=== PATIENT | female | born 1950 | race Caucasian/White ===

== ENCOUNTER 2023-11-19 11:17 | Emergency (ER) | payer MEDICARE, OTHER, SELFPAY ==
--- NOTE | ~2023-11-19 | CT_ITS ---
EXAMINATION: CT ABDOMEN AND PELVIS WITHOUT CONTRAST CLINICAL INFORMATION: Left flank pain, blood in urinalysis COMPARISON: None available. TECHNIQUE: Multidetector volumetric imaging was performed from the superior aspect of the liver through the pubic symphysis. Sagittal and coronal reformatted images were obtained on the technologist's workstation. This CT examination was performed using dose optimization techniques as appropriate, variously including the following: *Automated exposure control *Adjustment of mA and/or kV according to patient size (this includes techniques or standardized protocols for targeted exams where dose is matched to indication/reason for exam; i.e. extremities or head) *Use of iterative reconstruction technique DLP: 717 mGy-cm FINDINGS: Evaluation of solid organs, vascular structures, and bowel wall limited in the absence of intravenous contrast. LUNG BASES: Coronary artery calcifications present. Lung bases otherwise unremarkable. LIVER AND BILIARY TREE: Unremarkable. GALLBLADDER: Unremarkable. PANCREAS: Unremarkable. SPLEEN: Unremarkable. ADRENAL GLANDS: Unremarkable. KIDNEYS AND URETERS: Mild left hydroureteronephrosis to the level of the proximal ureter, where there is a 5 mm obstructing calculus (series 4, image 340). Mild asymmetric left perinephric fat stranding. No other urinary tract calculi identified. Right kidney unremarkable. GASTROINTESTINAL TRACT: Small esophageal hiatal hernia. Normal appendix. VASCULAR: Mild aortoiliac calcific atherosclerosis. Retroaortic left renal vein, a normal anatomic variant. LYMPH NODES: No lymphadenopathy. PERITONEUM: No ascites. BLADDER: Unremarkable. PELVIC VISCERA: Unremarkable. ABDOMINAL AND PELVIC WALL: Ventral lower abdominal wall skin thickening and mild fat stranding. OSSEOUS STRUCTURES: Age-indeterminate compression deformity of the T12 vertebral body with approximately 50% anterior and central height loss and 5 mm osseous retropulsion. Mild multilevel degenerative lower thoracic predominant spondylosis. Mild, grade 1 anterolisthesis of L4 and L5, likely secondary to lower lumbar facet arthropathy. CT/CT abdomen pelvis wo IV con IMPRESSION: 1. Obstructing, 5 mm left proximal ureteral calculus with mild upstream hydroureteronephrosis and likely reactive perinephric stranding. 2. Age-indeterminate compression deformity of the T12 vertebral body with mild osseous retropulsion. Correlate with point tenderness and neurologic signs/symptomatology.
[2023-11-19 11:22] VITALS: BP 204/84; PULSE 80; RESP 18; TEMP 35.9; O2SAT 96; BMI 38.5
[2023-11-19 12:21] LABS: Appearance Urine Cloudy; Color Urine Yellow; Glucose Urine UA Negative (Negative); Leukocyte Esterase Urine Negative (Negative); Nitrite Urine Negative (Negative); PH 5.5 (5.0-9.0); Specific Gravity - Urine 1.015 (1.005-1.025); UMIC TRIGGER UACC YES; Urine Blood Large (3+) (Negative); Urine Ketones Negative (Negative); Urine Protein 30 (1+) mg/dL (Neg-Trace)
[2023-11-19 12:23] LABS: Bacteria Urine 4+ (None Seen); Hyaline Casts Urine 0-2 /LPF (0-2); RBC Urine >20 /HPF (0-2); WBC Urine 0-5 /HPF (0-5)
[2023-11-19 14:08] LABS: Glucose, Whole Blood 126 mg/dL (60-115)
[2023-11-19 14:13] LABS: Basophils Percent Auto 0.3 % (0-2); Eosinophils Percent Auto 0.2 % (0-4); Hematocrit 41.3 % (37.0-47.0); Hemoglobin 13.5 g/dl (12.0-16.0); Imm Gran Abs Auto 0.04 X10*3/uL (0.00-0.03); Imm Gran Pct Auto 0.4 % (0.0-0.4); Lymphocytes Absolute Auto 0.5 X10*3/uL (1.2-4.9); Lymphocytes Percent Auto 4.8 % (20-40); MANUAL DIFF FLAG SCAN; Mean Corpuscular HGB Conc 32.7 g/dl (31.0-35.0); Mean Corpuscular Hemoglobin 28.2 pg (27.0-33.0); Mean Corpuscular Volume 86.4 fL (80.0-98.0); Mean Platelet Volume 10.1 fL (9.4-12.3); Monocytes Absolute Auto 0.4 X10*3/uL (0.1-1.2); Monocytes Percent Auto 4.1 % (2-11); Neutrophils Absolute Auto 9.7 x10*3/uL (2.0-8.3); Neutrophils Percent Auto 90.2 % (45-73); Platelet Count 243 X10*3/uL (160-400); Red Blood Count 4.78 X10*6/uL (4.20-5.50); SCAN SMEAR FLAG 1; White Blood Count 10.7 X10*3/uL (4.8-10.8)
[2023-11-19 14:29] LABS: SLIDE REVIEW VERIFIED
[2023-11-19 14:30] LABS: Alanine Aminotransferase 9 U/L (0-31); Albumin Level 4.2 g/dL (3.5-5.0); Alkaline Phosphatase 84 U/L (39-117); Anion Gap 15 (12-20); Aspartate Amino Transferase 20 U/L (5-31); Bilirubin Direct 0.3 mg/dL (0.0-0.5); Bilirubin Total 0.8 mg/dL (0.0-1.0); Blood Urea Nitrogen 14 mg/dL (9-16); Calcium 9.6 mg/dL (8.4-10.2); Carbon Dioxide 25 mmol/L (22-29); Chloride 104 mmol/L (96-108); Creatinine Clr Calc Pharmacy 51.3; Estimated Glomerular Filt Rate 55; Glucose Random 138 mg/dL (60-115); Lipase 19 U/L (8-78); Sodium 140 mmol/L (135-145); Total Protein 7.5 g/dL (6.5-8.0)
[2023-11-19 14:31] VITALS: BP 218/91; PULSE 85; RESP 18; TEMP 36.6; O2SAT 97
[2023-11-19 14:53] VITALS: BP 187/85
--- NOTE | 2023-11-19 15:03 | ED_ITS ---
HPI - General Adult General Chief complaint: General Medical Stated complaint: Abd pain, vomiting, unable to urinate Time Seen by Provider: 11/19/23 14:47 Source: patient and family Mode of arrival: ambulatory History of Present Illness HPI narrative: 73-year-old female with remote history of renal colic presents today with onset of left flank pain while watching TV this morning and experiencing nausea and vomiting several times but denies any fevers or chills and denies radiation of the flank pain. She has been unable to take her blood pressure medications today and otherwise reports corresponding dysuria. Related Data Previous Rx's Medication Instructions Recorded ketorolac 10 mg tablet 10 mg PO Q6H PRN pain 5 days #20 11/19/23 tabs ondansetron 4 mg disintegrating 4 mg PO Q8H PRN nausea and 11/19/23 tablet vomiting 4 days #10 tabs prednisone 20 mg tablet 20 mg PO DAILY #4 tabs 11/19/23 tamsulosin 0.4 mg capsule (Flomax) 0.4 mg PO BEDTIME #5 caps 11/19/23 Allergies Allergy/AdvReac Type Severity Reaction Status Date / Time No Known Allergies Allergy Verified 11/19/23 13:40 Review of Systems 2 Review of Systems: Pertinent positives and negatives as stated in HPI [facility] Past Medical History Source: nursing notes reviewed Social History Social History Alcohol intake: current Alcohol type: wine Smoked in Last 30 Days: No Use of substances other than those prescribed or required for medical reasons: No Advance Directives: Yes Advance Directives Information Provided: Yes Advance Directives on File: No Physical Exam ED Vital Signs: Vital Signs - 24 hr 11/19/23 11:22 11/19/23 14:31 11/19/23 14:53 Temperature 96.6 F L 97.8 F Pulse Rate 80 85 Respiratory Rate 18 18 Blood Pressure 204/84 H 218/91 H 187/85 H Pulse Oximetry 96 97 Oxygen Delivery Method Room Air Room Air BMI result Body Mass Index 38.5 VITAL SIGNS: Reviewed. GENERAL: Well developed, well nourished, in no acute distress. HEAD: Normocephalic/atraumatic EYES: PERRLA, EOMI EARS: Ext canals without abnormality NOSE: Nares patent bilateral OROPHARYNX: no oral lesions noted, posterior pharynx clear NECK: Supple, no adenopathy LUNGS: Normal breath sounds. No adventitious sounds or accessory muscle use. SpO2<97> CARDIOVASCULAR: Regular rate and rhythm without noted murmurs ABDOMEN: Soft, non-tender, non-distended with bowel sounds. MUSCULOSKELETAL: No tenderness, deformities, or effusions noted on gross inspection. EXTREMITIES: No cyanosis, clubbing or edema. SKIN: Inspection of the skin reveals no rashes NEUROLOGIC: Alert and oriented x 4. Strength and sensation to light touch were grossly intact x 4. Medications Administered Discontinued Medications Generic Name Dose Route Start Last Admin Trade Name Freq PRN Reason Stop Dose Admin Hydralazine HCl 5 mg 11/19/23 14:57 11/19/23 15:49 Hydralazine Hcl 20 Mg/Ml Vial IVPUSH 11/19/23 14:58 5 mg ONCE ONE Administration Protocol Sodium Chloride 1,000 mls @ 999 mls/hr 11/19/23 15:00 11/19/23 15:48 Ns IV 11/19/23 16:00 999 mls/hr .Q1H1M NICOLLE Administration Ketorolac Tromethamine 15 mg 11/19/23 14:57 11/19/23 15:50 Ketorolac Tromethamine 30 Mg/Ml Vial IVPUSH 11/19/23 14:58 15 mg ONCE ONE Administration Ondansetron HCl 4 mg 11/19/23 14:57 11/19/23 15:49 Ondansetron Hcl 4 Mg/2 Ml Vial IVPUSH 11/19/23 14:58 4 mg ONCE ONE Administration Medical Decision Making Medical Decision Making [facility] Narrative: 1455: 73-year-old female with history and clinical presentation, DDX: Ureterolithiasis, UTI, and no clinical suspicion for diverticulitis/pyelonephritis/appendicitis or obstruction. Patient receiving IV fluids/pain medications/antinausea medication. Patient also receiving medication for her high blood pressure since she was unable to tolerate p.o. medications. I reviewed all investigations and hematologic indices are negative for leukocytosis/anemia/thrombocytopenia. Chemistry indices negative for CONSTANCE or electrolyte/liver enzyme derangements. Urinalysis significant for hematuria but doubt infection. CT demonstrates 5 mm obstructing proximal ureteral stone with corresponding hydronephrosis. On re-evaluation patient is feeling better, I discussed the case with Dr. Cunha who will have his office reach out to the patient tomorrow. She is otherwise discharged home with Flomax/ketorolac/20 mg prednisone/Zofran. Differential Diagnosis Differential Diagnoses: The differential diagnosis associated with the presentation includes Please see the discussion above Admission/Observation Consideration of admission/observation: Escalation of care including admission/observation considered Please see the discussion above Consult Healthcare Provider Management of the patient was discussed with: Telecommunications Field Engineer Please see the discussion above Lab Data MDM Lab Attestation statement: I reviewed the patient's lab results. Please see the discussion above 11/19/23 14:08 11/19/23 14:08 Labs: Lab Results 11/19/23 11/19/23 11/19/23 Range/Units 12:07 13:57 14:08 WBC 10.7 (4.8-10.8) X10*3/uL RBC 4.78 (4.20-5.50) X10*6/uL Hgb 13.5 (12.0-16.0) g/dl Hct 41.3 (37.0-47.0) % MCV 86.4 (80.0-98.0) fL MCH 28.2 (27.0-33.0) pg MCHC 32.7 (31.0-35.0) g/dl RDW 14.0 (11.0-16.0) % Plt Count 243 (160-400) X10*3/uL MPV 10.1 (9.4-12.3) fL Immature Gran % (Auto) 0.4 (0.0-0.4) % Neut % (Auto) 90.2 H (45-73) % Lymph % (Auto) 4.8 L (20-40) % Evans % (Auto) 4.1 (2-11) % Eos % (Auto) 0.2 (0-4) % Baso % (Auto) 0.3 (0-2) % Lymph # (Auto) 0.5 L (1.2-4.9) X10*3/uL Evans # (Auto) 0.4 (0.1-1.2) X10*3/uL Eos # (Auto) 0.0 (0.0-0.4) X10*3/uL Baso # (Auto) 0.0 (0.0-0.2) X10*3/uL Abs Immat Gran (auto) 0.04 H (0.00-0.03) X10*3/uL Absolute Neuts (auto) 9.7 H (2.0-8.3) x10*3/uL Absolute Nucleated RBC 0.000 (0.0-0.012) X10*3/uL Nucleated RBC % (auto) 0.0 (0.0-0.2) /100WBC Smear Tech's Comments VERIFIED Sodium 140 (135-145) mmol/L Potassium 4.0 (3.3-5.1) mmol/L Chloride 104 (96-108) mmol/L Carbon Dioxide 25 (22-29) mmol/L Anion Gap 15 (12-20) BUN 14 (9-16) mg/dL Creatinine 1.00 (0.5-1.4) mg/dL Estim Creat Clear Calc 51.3 Estimated GFR 55 POC Glucose 126 H (60-115) mg/dL Random Glucose 138 H (60-115) mg/dL Calcium 9.6 (8.4-10.2) mg/dL Total Bilirubin 0.8 (0.0-1.0) mg/dL Direct Bilirubin 0.3 (0.0-0.5) mg/dL AST 20 (5-31) U/L ALT 9 (0-31) U/L Alkaline Phosphatase 84 (39-117) U/L Total Protein 7.5 (6.5-8.0) g/dL Albumin 4.2 (3.5-5.0) g/dL Lipase 19 (8-78) U/L Urine Color Yellow Urine Appearance Cloudy Urine pH 5.5 (5.0-9.0) Ur Specific Amelia 1.015 (1.005-1.025) Urine Protein 30 (1+) H (Neg-Trace) mg/dL Urine Glucose (UA) Negative (Negative) mg/dL Urine Ketones Negative (Negative) mg/dL Urine Blood Large (3+) H (Negative) Urine Nitrite Negative (Negative) Ur Leukocyte Esterase Negative (Negative) Urine RBC >20 H (0-2) /HPF Urine WBC 0-5 (0-5) /HPF Ur Squamous Epith Cells 3-5 (0-2) /HPF Urine Bacteria 4+ (None Seen) Hyaline Casts 0-2 (0-2) /LPF Radiology Impression Discussion of test interpretation with radiology: I have reviewed the radiologist's reading. Radiologist Impression: Please see the discussion above Chronic Conditions Patient?s care impacted by: Hypertension Critical Care Time Critical Care Time Critical Care Time: Yes Total Critical Care Time: 60 Attestation: I personally attest to this time spent taking care of the patient. Discharge Plan Discharge Clinical Impression: Renal colic, Ureterolithiasis, Hydronephrosis Patient Disposition: Home, Self-Care Instructions: Renal Colic (ED), Low Oxalate Diet (ED), Hydronephrosis (ED), Ureteral Stones (ED) Additional Instructions: 1. Resume all home medications as prescribed. 2. Dr. Cunha's office will call you tomorrow. 3. Please return to the ER if you have any worsening of symptoms. Prescriptions: New ketorolac 10 mg tablet 10 mg PO Q6H PRN (Reason: pain) 5 Days Qty: 20 0RF Rx Instructions: Patient received Toradol in the emergency room. prednisone 20 mg tablet 20 mg PO DAILY Qty: 4 0RF ondansetron 4 mg tablet,disintegrating 4 mg PO Q8H PRN (Reason: nausea and vomiting) 4 Days Qty: 10 0RF tamsulosin [Flomax] 0.4 mg capsule 0.4 mg PO BEDTIME Qty: 5 0RF Referrals: Candido Treviño MD [Primary Care Provider] - Luis A Cunha MD [Physician] -
[2023-11-19] MEDS: 0.9 % Sodium Chloride 1,000 ML 999 ML IV (15:48)
[2023-11-19] MEDS: ondansetron HCL 4 MG/2 ML VIAL IVPUSH (15:49)
[2023-11-19] MEDS: hydrALAZINE HCl 20 MG/ML VIAL 5 MG IVPUSH (15:49)
[2023-11-19] MEDS: Ketorolac Tromethamine 30 MG/ML VIAL 15 MG IVPUSH (15:50)
[2023-11-19 17:41] VITALS: BP 169/84; PULSE 95; RESP 16; O2SAT 95
== END 2023-11-19 17:54 | disposition home or self-care (01) ==
PROVIDERS: Emergency Provider Student in an Organized Health Care Education/Training Program; PCP Internal Medicine
DX: N13.2 Hydronephrosis with renal and ureteral calculous obstruction (principal); R11.2 Nausea with vomiting, unspecified; E11.9 Type 2 diabetes mellitus without complications; I10 Essential (primary) hypertension; Z87.442 Personal history of urinary calculi; Z79.899 Other long term (current) drug therapy
CPT/HCPCS: 36415; 74176; 80048; 80076; 81001; 82947; 83690; 85025; 96361; 96374; 96375; 99284; J0360; J1885; J2405

== ENCOUNTER 2023-11-20 12:58 | Outpatient (AMB) | payer MEDICARE, OTHER, SELFPAY ==
--- NOTE | 2023-11-20 13:12 | A.OFFVIS_ITS ---
Intake Intake Visit Reasons: ER follow up/H&P ESWL Intake Note: NEW Patient presents today to established treatment for Renal Stones, pre op: Meds- Tamsulosin Allergies to Antibiotic- Sulfa Blood Thinner- Aspirin Principal Software Architect Required: No Accompanied by: Self / Same As Patient Allergies Sulfa (Sulfonamide Antibiotics) Allergy (Mild, Verified 11/20/23 13:19) Rash Medication List - Last Reconciled 11/20/23 by Jarvis Vora MD alendronate 70 mg PO QWEEK aspirin 81 mg PO DAILY budesonide 9 mg PO QAM citalopram 20 mg PO DAILY ergocalciferol (vitamin D2) PO ezetimibe 10 mg PO DAILY ferrous sulfate 325 mg PO DAILY furosemide 20 mg PO DAILY insulin detemir U-100 (Levemir FlexPen) 70 units subcut insulin glargine (Basaglar KwikPen U-100 Insulin) 70 units subcut ketorolac 10 mg PO Q6H PRN 5 days levothyroxine 125 mcg PO DAILY losartan 100 mg PO DAILY meloxicam 15 mg PO DAILY metformin 500 mg PO BID metoprolol succinate ER 25 mg PO DAILY ondansetron 4 mg PO Q8H PRN 4 days oxycodone-acetaminophen 5-325 mg (Percocet) 1 tab PO Q6H PRN pen needle, diabetic (BD Ultra-Fine Mini Pen Needle) As directed pioglitazone 30 mg PO DAILY prednisone 20 mg PO DAILY rosuvastatin (Crestor) 40 mg PO DAILY tamsulosin (Flomax) 0.4 mg PO BEDTIME tirzepatide (Mounjaro) mg subcut HPI HPI Comments History of Present Illness Details Kassandra is a 73-year-old female she was seen in the emergency room on 11/19 23 with left flank pain. She had a CT scan done which noted a 5 mm proximal ureteral stone with mild hydronephrosis. She states that several years ago she had a kidney stone requiring a stent and treatment for the stone and the stent was removed in the office. Past medical history hypertension, CAD, type 2 DM, the patient is on aspirin 81 mg daily which she has not taken in a few days. Currently her pain is manageable she denies nausea. I reviewed CT imaging--CTAP-5 mm left proximal ureteral calculus with mild upstream hydroureteronephrosis and likely reactive perinephric stranding. Cystoscopy, Left ureteroscopy, laser lithotripsy, left ureteral stent. I have discussed to continue to hold the aspirin, and she can take extra- strength Tylenol It is okay if she uses a Toradol if she gets severe pain 7-10 I will also send percocet to use for pain 7-10 Preop testing called after reviewing the patient's medication list The patient was informed that because she is on Mounjaro, this medication needs to be on hold for 7 days prior to scheduled anesthesia procedures. [facility] Medical History (Updated 11/20/23 @ 14:32 by WILLIAM Enriquez) Herniated muscle Lower back pain Bursitis Arthritis Biceps tendonitis Osteopenia Anxiety disorder Hypertension Systolic murmur Mixed hyperlipidemia Hiatal hernia Collagenous colitis Hyperlipemia Type 2 diabetes mellitus Heart attack History of renal stone Surgical History (Updated 11/20/23 @ 14:32 by WILLIAM Enriquez) History of carpal tunnel surgery History of heart artery stent Hx of lithotripsy Family History Father No problems noted. Mother Brain cancer Social History Alcohol intake: current Alcohol type: wine Patient Tobacco Use Status: Never used Tobacco Review of Systems Const All systems reviewed & are unremarkable except as noted in HPI and below Reports no additional complaints Eyes Reports no additional complaints ENT Reports no additional complaints Card Denies dyspnea Resp Denies cough and Denies dyspnea GI Reports no additional complaints Reports no additional complaints Musc Reports no additional complaints Skin/Breast Denies rash and Denies unusual bruising Neuro Reports no additional complaints Psych Reports no additional complaints Endo Reports no additional complaints Roland/Lymph Reports no additional complaints Aller/Immun Reports no additional complaints Physical Exam Const General: cooperative, healthy appearing and no acute distress Orientation/consciousness: patient oriented x3 HEENT Head: Yes normal to inspection, Yes normocephalic and Yes atraumatic Eyes Conjunctivae: conjunctivae normal Neck Neck: Yes normal visual inspection and Yes trachea midline Chest Chest palpation & inspection: normal inspection of the chest Resp Effort & Inspection: normal respiratory effort Cardio Rate: regular rate GI Inspection: Yes normal to inspection Skin General skin exam: no rashes or lesions noted Neuro General: patient oriented x3 Extrem General: No edema Psych Appearance: grossly normal Results Reviewed Results Reviewed: Date of Service: 11/19/23 EXAMINATION: CT ABDOMEN AND PELVIS WITHOUT CONTRAST CLINICAL INFORMATION: Left flank pain, blood in urinalysis COMPARISON: None available. FINDINGS: Evaluation of solid organs, vascular structures, and bowel wall limited in the absence of intravenous contrast. LUNG BASES: Coronary artery calcifications present. Lung bases otherwise unremarkable. LIVER AND BILIARY TREE: Unremarkable. GALLBLADDER: Unremarkable. PANCREAS: Unremarkable. SPLEEN: Unremarkable. ADRENAL GLANDS: Unremarkable. KIDNEYS AND URETERS: Mild left hydroureteronephrosis to the level of the proximal ureter, where there is a 5 mm obstructing calculus (series 4, image 340). Mild asymmetric left perinephric fat stranding. No other urinary tract calculi identified. Right kidney unremarkable. GASTROINTESTINAL TRACT: Small esophageal hiatal hernia. Normal appendix. VASCULAR: Mild aortoiliac calcific atherosclerosis. Retroaortic left renal vein, a normal anatomic variant. LYMPH NODES: No lymphadenopathy. PERITONEUM: No ascites. BLADDER: Unremarkable. PELVIC VISCERA: Unremarkable. ABDOMINAL AND PELVIC WALL: Ventral lower abdominal wall skin thickening and mild fat stranding. OSSEOUS STRUCTURES: Age-indeterminate compression deformity of the T12 vertebral body with approximately 50% anterior and central height loss and 5 mm osseous retropulsion. Mild multilevel degenerative lower thoracic predominant spondylosis. Mild, grade 1 anterolisthesis of L4 and L5, likely secondary to lower lumbar facet arthropathy. IMPRESSION: 1. Obstructing, 5 mm left proximal ureteral calculus with mild upstream hydroureteronephrosis and likely reactive perinephric stranding. 2. Age-indeterminate compression deformity of the T12 vertebral body with mild osseous retropulsion. Correlate with point tenderness and neurologic signs/symptomatology. Assessment & Plan Assessment & Plan (1) Ureteral calculus, left: Code(s): N20.1 - Calculus of ureter (2) Hydronephrosis: Code(s): N13.30 - Unspecified hydronephrosis Plan Plan for Cystoscopy, Left ureteroscopy, laser lithotripsy, left ureteral stent. Risks discussed included but not limited to, possible need to repeat procedure if stone is not completely fragmented, Irritative voiding symptoms, bladder spasms, urgency, blood in urine. Medications: New oxycodone-acetaminophen 5-325 mg (Percocet) use instead of the Toradol 1 tab PO Q6H PRN 8 tabs 0RF pain (scale score 7- 10) Patient Instructions: The patient had an opportunity to ask questions regarding treatment plan. All questions were answered. Imaging, Laboratory studies and physical exam results were discussed and reviewed in detail. No major barriers to understanding were identified. The patient expressed understanding and agreement with the above treatment plan. The patient is aware they should contact our office by phone for worsening of their current condition or the appearance of new symptoms. Compliance is encouraged with any medications and followup testing that is ordered. It is a privilege to be allowed the opportunity to participate in the urologic care of your patient. If you have any questions or concerns regarding treatment for the above conditions please do not hesitate to contact me. The office telephone contact is [phone]. This note is constructed in part using voice recognition software. While every effort has been made to ensure accuracy cleaner errors may have been included. Yours sincerely, Jarvis Vora MD Coding Level of Care Code New Pt Level 4 (59942) Diagnoses Ureteral calculus, left N20.1 Hydronephrosis N13.30
== END 2023-11-20 14:06 | disposition home or self-care (01) ==
PROVIDERS: PCP Internal Medicine; Visit Provider Urology
DX: N20.1 Calculus of ureter (principal); N13.30 Unspecified hydronephrosis
CPT/HCPCS: 99204

== ENCOUNTER → 2023-11-20 12:58 | Outpatient (BNVA) | payer MEDICARE, OTHER, SELFPAY | PROVIDERS: PCP Internal Medicine; Visit Provider Urology | DX: N13.2 Hydronephrosis with renal and ureteral calculous obstruction (principal) | CPT/HCPCS: 99202 ==

== ENCOUNTER 2023-11-28 07:40 | Day surgery (SDC) | payer MEDICARE, OTHER, SELFPAY ==
--- NOTE | 2023-11-27 10:56 | HO.ANESPROP2 ---
Documented by User: Regina Mcgrath NP 11/27/23 12:49 HPI - Anesthesia Eval Consult details Narrative: 73yo F for Left Cystoscopy, Ureteroroscopy, Retro, Laser,with possible stent Follows [facility] cardiology. Stable at 02/2023 office visit, Active with gym weekly with 1 year f/u. (Hx of FL with stent ~ 2010) Anesthesia Pre-Procedure Meds Is the patient on any of the following meds?: Any other SGL-1 drugs or drugs that delay gastric emptying (Mounjaro/Terzepatide) PMFSH Active Problems Active Problems: All Active Problems (Updated 11/20/23 @ 14:32 by WILLIAM Enriquez) Ureteral calculus, left (Acute) Past Medical History Medical History (Updated 11/20/23 @ 14:32 by WILLIAM Enriquez) Herniated muscle Lower back pain Bursitis Arthritis Biceps tendonitis Osteopenia Anxiety disorder Hypertension Systolic murmur Mixed hyperlipidemia Hiatal hernia Collagenous colitis Hyperlipemia Type 2 diabetes mellitus Heart attack History of renal stone Family History Family History Father No problems noted. Mother Brain cancer Surgical History Surgical History (Updated 11/20/23 @ 14:32 by WILLIAM Enriquez) History of carpal tunnel surgery History of heart artery stent Hx of lithotripsy Social History Social History Alcohol intake: current Alcohol intake frequency: 0-2 drinks per day Alcohol type: wine Patient Tobacco Use Status: Never used Tobacco Second Hand Smoke Exposure: No Use of substances other than those prescribed or required for medical reasons: No Are you DNR?: No Advance Directives: No Advance Directives Information Provided: Yes Advance Directives on File: No Meds Allergies Allergy/AdvReac Type Severity Reaction Status Date / Time Sulfa (Sulfonamide Allergy Mild Rash Verified 11/20/23 13:19 Antibiotics) Home Medications Medication Instructions Recorded Confirmed Last Taken Type alendronate 70 mg tablet 70 mg PO QWEEK 11/20/23 11/28/23 Unknown History aspirin 81 mg tablet,delayed 81 mg PO DAILY 11/20/23 11/28/23 11/20/23 History release budesonide 9 mg tablet,delayed and 9 mg PO QAM 11/20/23 11/28/23 Unknown History extended release citalopram 20 mg tablet 20 mg PO DAILY 11/20/23 11/28/23 Unknown History ergocalciferol (vitamin D2) 1,250 1,250 unit PO DAILY 11/20/23 11/28/23 Unknown History mcg (50,000 unit) capsule (Vitamin D2) ezetimibe 10 mg tablet 10 mg PO DAILY 11/20/23 11/28/23 Unknown History ferrous sulfate 325 mg (65 mg 325 mg PO DAILY 11/20/23 11/28/23 Unknown History iron) tablet furosemide 20 mg tablet 20 mg PO DAILY 11/20/23 11/28/23 Unknown History insulin detemir U-100 100 unit/mL 70 unit subcut 11/20/23 11/20/23 Unknown History (3 mL) subcutaneous pen (Levemir FlexPen) insulin glargine 100 unit/mL (3 70 unit subcut 11/20/23 11/20/23 Unknown History mL) subcutaneous pen (Basaglar KwikPen U-100 Insulin) levothyroxine 125 mcg tablet 125 mcg PO DAILY 11/20/23 11/28/23 Unknown History losartan 100 mg tablet 100 mg PO DAILY 11/20/23 11/28/23 Unknown History meloxicam 15 mg tablet 15 mg PO DAILY 11/20/23 11/28/23 Unknown History metformin 500 mg tablet 500 mg PO BID 11/20/23 11/28/23 Unknown History metoprolol succinate 25 mg 25 mg PO DAILY 11/20/23 11/28/23 Unknown History tablet,extended release 24 hr pen needle, diabetic 31 gauge x #1,200 ea 11/20/23 11/20/23 Unknown History 316 (BD Ultra-Fine Mini Pen Needle) pioglitazone 30 mg tablet 30 mg PO DAILY 11/20/23 11/28/23 Unknown History rosuvastatin 40 mg tablet (Crestor) 40 mg PO DAILY 11/20/23 11/28/23 Unknown History tirzepatide 7.5 mg/0.5 mL 7.5 mg subcut QWEEK 11/20/23 11/28/23 11/16/23 History subcutaneous pen injector (Elisha) Exam Pertinent Lab Results Pertinent Lab Results: Laboratory Tests 11/19/23 14:08 WBC 10.7 Hgb 13.5 Hct 41.3 Plt Count 243 Sodium 140 Potassium 4.0 Chloride 104 Carbon Dioxide 25 BUN 14 Creatinine 1.00 Narrative Narrative: EKG 02/2023 SR with freq PVCs 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 LV nml in size, wall thickness and systolic function .EF 55-60%. No RWMA. Indeterminate diastolic function. 2. RV nml in size and function. PASP wnl. 3. LA mildly dilated 4. No hemodynamically significant valve disease. Assessment and Plan Assessment Anesthesia Assessment: Chart Reviewed Documented by User: Jorje Jack MD 11/28/23 10:21 HPI - Anesthesia Eval Anesthesia Pre-Procedure Meds If Yes to any meds - educate patient: Pt education - increased risk of aspiration (Last dose Mounjaro 11/16.) [facility] Past Medical History Medical History (Updated 11/20/23 @ 14:32 by WILLIAM Enriquez) Herniated muscle Lower back pain Bursitis Arthritis Biceps tendonitis Osteopenia Anxiety disorder Hypertension Systolic murmur Mixed hyperlipidemia Hiatal hernia Collagenous colitis Hyperlipemia Type 2 diabetes mellitus Heart attack History of renal stone Family History Family History Father No problems noted. Mother Brain cancer Family history of problems with anesthesia: No Surgical History Surgical History (Updated 11/20/23 @ 14:32 by WILLIAM Enriquez) History of carpal tunnel surgery History of heart artery stent Hx of lithotripsy History of Problems with Anesthesia: Yes (repetitive PONV, but not after colonoscopy) Social History Social History Alcohol intake: current Alcohol intake frequency: 0-2 drinks per day Alcohol type: wine Patient Tobacco Use Status: Never used Tobacco Second Hand Smoke Exposure: No Use of substances other than those prescribed or required for medical reasons: No Are you DNR?: No Advance Directives: No Advance Directives Information Provided: Yes Advance Directives on File: No Meds Allergies Allergy/AdvReac Type Severity Reaction Status Date / Time Sulfa (Sulfonamide Allergy Mild Rash Verified 11/20/23 13:19 Antibiotics) Home Medications Medication Instructions Recorded Confirmed Last Taken Type alendronate 70 mg tablet 70 mg PO QWEEK 11/20/23 11/28/23 Unknown History aspirin 81 mg tablet,delayed 81 mg PO DAILY 11/20/23 11/28/23 11/20/23 History release budesonide 9 mg tablet,delayed and 9 mg PO QAM 11/20/23 11/28/23 Unknown History extended release citalopram 20 mg tablet 20 mg PO DAILY 11/20/23 11/28/23 Unknown History ergocalciferol (vitamin D2) 1,250 1,250 unit PO DAILY 11/20/23 11/28/23 Unknown History mcg (50,000 unit) capsule (Vitamin D2) ezetimibe 10 mg tablet 10 mg PO DAILY 11/20/23 11/28/23 Unknown History ferrous sulfate 325 mg (65 mg 325 mg PO DAILY 11/20/23 11/28/23 Unknown History iron) tablet furosemide 20 mg tablet 20 mg PO DAILY 11/20/23 11/28/23 Unknown History insulin detemir U-100 100 unit/mL 70 unit subcut 11/20/23 11/20/23 Unknown History (3 mL) subcutaneous pen (Levemir FlexPen) insulin glargine 100 unit/mL (3 70 unit subcut 11/20/23 11/20/23 Unknown History mL) subcutaneous pen (Basaglar KwikPen U-100 Insulin) levothyroxine 125 mcg tablet 125 mcg PO DAILY 11/20/23 11/28/23 Unknown History losartan 100 mg tablet 100 mg PO DAILY 11/20/23 11/28/23 Unknown History meloxicam 15 mg tablet 15 mg PO DAILY 11/20/23 11/28/23 Unknown History metformin 500 mg tablet 500 mg PO BID 11/20/23 11/28/23 Unknown History metoprolol succinate 25 mg 25 mg PO DAILY 11/20/23 11/28/23 Unknown History tablet,extended release 24 hr pen needle, diabetic 31 gauge x #1,200 ea 11/20/23 11/20/23 Unknown History 3/16 (BD Ultra-Fine Mini Pen Needle) pioglitazone 30 mg tablet 30 mg PO DAILY 11/20/23 11/28/23 Unknown History rosuvastatin 40 mg tablet (Crestor) 40 mg PO DAILY 11/20/23 11/28/23 Unknown History tirzepatide 7.5 mg/0.5 mL 7.5 mg subcut QWEEK 11/20/23 11/28/23 11/16/23 History subcutaneous pen injector (Mounjaro) Exam Airway Mallampati Class: II TM Dist: <=3cm Neck ROM: Full Loose/Missing/Broken Teeth: No Heart: ok. see above. Lungs: ok Assessment and Plan Assessment Anesthesia Assessment: Anesthesia Plan Discussed Final Anesthetic Review Family History of Problems with Anesthesia: No History of Problems with Anesthesia: Yes (repetitive PONV, but not after colonoscopy) NPO: Yes ASA Class: III Final Preanesthetic Review: No Changes in Pt Med Stat, Meds/Allgs Chart Reviewed, Consent Obtained/Reviewed and Anes Risks/Benef Reviewed Patient Risk: High Procedure Risk: Low Anesthetic Plan Anesthetic Plan: GA and Agree w/ Assess. and Plan Disposition: Standard PACU
[2023-11-28] VITALS (7 sets, daily range): BP systolic 126–173; BP diastolic 71–90; PULSE 62–77; RESP 16–18; TEMP 36.1–36.6; O2SAT 96–98; BMI 37.5
--- NOTE | ~2023-11-28 | FL_ITS ---
EXAMINATION: XR FLUOROSCOPY WITH IMAGES CLINICAL INFORMATION: Left stone. 5 mm left proximal ureteral calculus. COMPARISON: CT abdomen and pelvis of 11/19/2023. TECHNIQUE: Fluoroscopy Supervised By: Dr. Vora. Fluoroscopy Time: 34.2 seconds. Cumulative Dose: 15.59 mGy. DAP: Gycm2. Images: 2. FINDINGS: Double-J ureteral stent present with proximal aspect in region of left kidney and distal end overlying bladder. FL/FL guidance in OR IMPRESSION: Fluoroscopy provided for intraoperative guidance. Please refer to operative report for more detailed evaluation.
[2023-11-28] MEDS: Lactated Ringers 1,000 ML 100 ML IVCONT (08:44)
[2023-11-28 08:51] LABS: Glucose, Whole Blood 155 mg/dL (60-115)
--- NOTE | 2023-11-28 09:50 | MHC.SHP ---
Pre-Procedural Eval Section A - 24 Hr Update-Section A only Date of Service: 11/28/23 The patient is an INPATIENT: No The patient has been examined within 24 hours of the surgical procedure. The History & Physical has been completed within 30 days and I have reviewed it.: Yes Section B - Complete if H&P > 30 days Chief Complaint: Calculus of ureter, left Allergies: Allergies Allergy/AdvReac Type Severity Reaction Status Date / Time Sulfa (Sulfonamide Allergy Mild Rash Verified 11/20/23 13:19 Antibiotics) Plan Diagnosis/Plan: Unchanged I have reviewed the history and physical and performed a pertinent physical examination on my patient. No changes have occurred unless specified. Plan for Cystoscopy, left ureteroscopy, laser lithotripsy, ureteral stent. Risks discussed included but not limited to, possible need to repeat procedure if stone is not completely fragmented, Irritative voiding symptoms, bladder spasms, urgency, blood in urine. Time Spent With Patient Time: Total time managing care of this patient today ____ minutes.
--- NOTE | 2023-11-28 11:08 | W.PM.OPN ---
Operative Note Operative Note Date of Service: 11/28/23 Narrative: PreOperative Diagnosis:?? Left proximal ureteral stone, left hydronephrosis Post Operative Diagnosis:?? Left hydronephrosis Procedure: - cystoscopy, left retrograde, left ureteroscopy laser lithotripsy stent insertion, 6 British by 24 cm Disposible Flexible ureteroscope utilized Surgeon:?Dr Jarvis Vora Anesthesia:? General Indications for procedure: left flank pain, CTAP on 11/19/23 with a 5 mm proximal left ureteral stone with mild hydronephrosis Findings: Left stone not visualized. Procedure: After informed consent was verified the patient was brought to the operating placed on the OR table in supine position.? General Anesthesia was administered per protocol.? The patient was placed in lithotomy position, prepped and draped in the usual sterile fashion.? Safety pause time-out and side of surgery confirmed.? Antibiotics confirmed. Ancef 2 gm IV. 2% lidocaine jelly 10 mL was passed transurethrally. A 22 British cystoscope was inserted transurethrally, The bladder was visualized.? Both ureteric orifices were in normal position. An open-ended ureteral catheter was passed into the [] ureteral orifice and a retrograde examination was performed. A filling defect was not visualized in the ureter, mild dilatation of the proximal ureter and renal pelvis. A guidewire was passed through the ureteral catheter into the kidney, and a 2nd guidewire was then passed into the kidney to use as a safety. The cystoscope was removed, leaving both guidewires in place. One guidewire was used as the safety and was attached to the draping. The semi rigid ureteroscope was passed over one of the guidewires to the level of the left UPJ a stone was not visualized. The rigid ureteroscope was removed and the Disposible flexible ureteroscope was then passed over the guide wire into the left kidney the stone was not visualized. The ureteroscope was removed. The cystoscope was passed over the safety guidewire. A? 6 British by 24 cm stent was placed into the ureter and renal pelvis under a combination of fluoroscopy and direct visualization. The bladder was emptied.? The rigid cystoscope was removed. ? 2% lidocaine jelly was passed transurethrally. The patient tolerated the procedure well and was brought to the recovery room in stable condition. Complications: None Drains: Ureteral stent as dictated above
== END 2023-11-28 13:15 | disposition home or self-care (01) ==
PROVIDERS: PCP Internal Medicine; Visit Provider Urology
PROC: (CPT 52332; principal; 2023-11-28 09:30)
DX: N13.30 Unspecified hydronephrosis (principal); Z87.442 Personal history of urinary calculi; I10 Essential (primary) hypertension; I25.10 Atherosclerotic heart disease of native coronary artery without angina pectoris; I25.2 Old myocardial infarction; Z95.5 Presence of coronary angioplasty implant and graft; E11.9 Type 2 diabetes mellitus without complications; E78.2 Mixed hyperlipidemia; K52.831 Collagenous colitis; F41.9 Anxiety disorder, unspecified; M85.80 Other specified disorders of bone density and structure, unspecified site; M54.50 Low back pain, unspecified; Z79.4 Long term (current) use of insulin; Z79.84 Long term (current) use of oral hypoglycemic drugs; Z79.85 Long-term (current) use of injectable non-insulin antidiabetic drugs; Z79.52 Long term (current) use of systemic steroids; Z79.82 Long term (current) use of aspirin; Z79.899 Other long term (current) drug therapy; Z88.2 Allergy status to sulfonamides
CPT/HCPCS: 52332; 82947; 87086; 87088; C1769; C2617; J0131; J0690; J2405; J2704; J3010; Q9967

== ENCOUNTER → 2023-11-28 07:40 | Outpatient (BNV) | payer MEDICARE, OTHER, SELFPAY | PROVIDERS: PCP Internal Medicine; Visit Provider Urology | DX: N20.1 Calculus of ureter (principal) | CPT/HCPCS: 52356; 74420 ==

== ENCOUNTER 2023-11-30 08:29 | Outpatient (REF) | payer MEDICARE, OTHER, SELFPAY ==
--- NOTE | ~2023-11-30 | XR_ITS ---
EXAMINATION: XR ABDOMEN KUB CLINICAL INDICATION: Left ureteral stent. COMPARISON: Abdomen CT from 01/2024 TECHNIQUE: AP view of the abdomen. FINDINGS: Lung bases are unremarkable. Left ureteral stent appears to be in satisfactory position with proximal loop region of mid left kidney and distal loop of stent in urinary bladder. No radiographic evidence of renal, ureteral or bladder calculi. Multilevel osteophyte formation of the degenerated spine. Again noted is a compression fracture of the T12 vertebral body. XR/XR KUB IMPRESSION: * The left ureteral stent is in satisfactory position. * There are no radiographically visible urinary tract calculi.
== END 2023-11-30 08:30 | disposition home or self-care (01) ==
LOC: HO.XRAY 08:29
PROVIDERS: PCP Internal Medicine; Visit Provider Urology
DX: N20.1 Calculus of ureter (principal)
CPT/HCPCS: 74018

== ENCOUNTER 2023-12-06 08:04 | Outpatient (AMB) | payer MEDICARE, OTHER, SELFPAY ==
--- NOTE | 2023-12-06 08:11 | A.OFFVIS_ITS ---
Intake Intake Visit Reasons: Cysto stent removal Intake Note: Patient presents today for a CYSTOSCOPY Procedure: Meds: Vesicare & Tamsulosin Allergies to Antibiotic: Sulfa Blood Thinner: Aspirin Urinalysis test clear for Cysto? YES Disposable Uro-G Cystoscope Cannula: Olu: [id number] Exp: 02/26/2025 Stage Set Designer Required: No Accompanied by: Self / Same As Patient Allergies Sulfa (Sulfonamide Antibiotics) Allergy (Mild, Verified 12/06/23 08:12) Rash Medication List - Last Reconciled 12/06/23 by Jarvis Vora MD alendronate 70 mg PO QWEEK aspirin 81 mg PO DAILY budesonide 9 mg PO QAM citalopram 20 mg PO DAILY ergocalciferol (vitamin D2) (Vitamin D2) 1,250 units PO DAILY ezetimibe 10 mg PO DAILY ferrous sulfate 325 mg PO DAILY furosemide 20 mg PO DAILY insulin detemir U-100 (Levemir FlexPen) 70 units subcut insulin glargine (Basaglar KwikPen U-100 Insulin) 70 units subcut levothyroxine 125 mcg PO DAILY losartan 100 mg PO DAILY meloxicam 15 mg PO DAILY metformin 500 mg PO BID metoprolol succinate ER 25 mg PO DAILY pen needle, diabetic (BD Ultra-Fine Mini Pen Needle) As directed pioglitazone 30 mg PO DAILY rosuvastatin (Crestor) 40 mg PO DAILY tamsulosin (Flomax) 0.4 mg PO BEDTIME tirzepatide (Mounjaro) 7.5 mg subcut QWEEK HPI HPI Comments History of Present Illness Details 12/06/23--Kassandra is s/p ureteroscopy l eft ureteroscopy, 5 mm ureteral stone was not visualized, left ureteral stent placed. FU KUB - no radio-opaque stone seen. I have discussed with the patient that she either passed the stone or it may have migrated into a calyce and was not visualized at time of ureteroscopy and that KUB may miss radiolucent stones. Plan to remove stent today. Will get fu imaging. metabolic w/u Review of chart: 11/20/23 Kassandra is a 73-year-old female she was seen in the emergency room on 11/19 23 with left flank pain. She had a CT scan done which noted a 5 mm proximal ureteral stone with mild hydronephrosis. She states that several years ago she had a kidney stone requiring a stent and treatment for the stone and the stent was removed in the office. Past medical history hypertension, CAD, type 2 DM, the patient is on aspirin 81 mg daily which she has not taken in a few days. Currently her pain is manageable she denies nausea. I reviewed CT imaging--CTAP-5 mm left proximal ureteral calculus with mild upstream hydroureteronephrosis and likely reactive perinephric stranding. 12/06/23--Plan: Cystoscopy and ureteral stent removal today 24 hr urine Diet management, pamphlet given Reevaluate for renal nephrolithiasis, CT-stone protocol [facility] Medical History Herniated muscle Lower back pain Bursitis Arthritis Biceps tendonitis Osteopenia Anxiety disorder Hypertension Systolic murmur Mixed hyperlipidemia Hiatal hernia Collagenous colitis Hyperlipemia Type 2 diabetes mellitus Heart attack History of renal stone Surgical History Hx of cystoscopy History of carpal tunnel surgery History of heart artery stent Hx of lithotripsy Family History Father No problems noted. Mother Brain cancer Social History Alcohol intake: current Alcohol intake frequency: 0-2 drinks per day Alcohol type: wine Patient Tobacco Use Status: Never used Tobacco Second Hand Smoke Exposure: No Review of Systems Const All systems reviewed & are unremarkable except as noted in HPI and below Reports no additional complaints Eyes Reports no additional complaints ENT Reports no additional complaints Card Denies dyspnea Resp Denies cough and Denies dyspnea GI Reports no additional complaints Reports no additional complaints Musc Reports no additional complaints Skin/Breast Denies rash and Denies unusual bruising Neuro Reports no additional complaints Psych Reports no additional complaints Endo Reports no additional complaints Roland/Lymph Reports no additional complaints Aller/Immun Reports no additional complaints Office Procedures Cystoscopy Consent Discussed risk and benefit or proposed procedure with the patient. Information consent for procedure given to the patient. Discussed technical aspects, risks, benefits and alternatives in full. Addressed all of the patient's questions and concerns regarding the procedure. The patient demonstrated knowledge and understanding. They wish to proceed with this procedure. Preparation The patient was prepped in the usual manner. A medical asst was present and in the room. Genitalia was prepped with betadine solution in a sterile manner. Lidocaine Jelly 2% was placed into the urethra and 16Fr flexible Olympus cystoscope was inserted into the meatus after adequate lubrication. Procedure Time out per protocol performed. Bladder Inspection Cystoscopy findings: mild edema ureteral orifice which is expected, distal end of ureteral stent visualized. The grasping forceps were used and the stent was removed without difficulty. [id number] with stent removal DISPOSABLE SCOPE URO-G FLEXIBLE SCOPE Procedure code (CPT) selection complete Office Meds lidocaine HCl 2 % mucosal jelly in applicator Performing Provider: Jarvis Vora MD [facility] Administered by: Chi North LPN on 12/06/23 08:23 Dose Route Admin Location Dispensed Lot Number Expiration Date ND Applications Development Analyst 10 mL intra-urethral 20 mL naproxen 500 mg tablet Performing Provider: Jarvis Vora MD Performing Location[facility] Administered by: Chi North LPN on 12/06/23 08:23 Dose Route Admin Location Dispensed Lot Number Expiration Date ND Applications Development Analyst 500 mg PO 1 tab ciprofloxacin HCl 500 mg tablet Performing Provider: Jarvis Vora MD Performing Location: [facility] [place] Administered by: Chi North LPN on 12/06/23 08:23 Dose Route Admin Location Dispensed Lot Number Expiration Date NDC Applications Development Analyst 500 mg PO 1 tab Results AMB Urinalysis, Automated UA Leukoctes 500 Samantha/uL Last Edit by WILLIAM Enriquez on 12/06/23 08:18 3+ Belia Menendez 12/06/23 08:18 UA Nitrite Negative Last Edit by WILLIAM Enriquez on 12/06/23 08:18 UA Urobilinogen 0.2 mg/dL Last Edit by WILLIAM Enriquez on 12/06/23 08:1 8 UA Protein 30 mg/dL Last Edit by WILLIAM Enriquez on 12/06/23 08:18 1+ Belia Menendez 12/06/23 08:18 UA pH 6.0 Last Edit by WILLIAM Enriquez on 12/06/23 08:18 UA Blood 200 Matias/uL Last Edit by Belia Menendez [facility] on 12/06/23 08:18 3+ Belia Menendez 12/06/23 08:18 UA Specific [place] 1.020 Last Edit by WILLIAM Enriquez on 12/06/23 08: 18 UA Ketone Negative Last Edit by WILLIAM Enriquez on 12/06/23 08:18 UA Bilirubin 0 mg/dL Last Edit by WILLIAM Enriquez on 12/06/23 08:18 UA Glucose 0 mg/dL Last Edit by WILLIAM Enriquez on 12/06/23 08:18 Results Reviewed Results Reviewed: Laboratory Last Values Urine pH (Auto) 6.0 12/06/23 08:16 Specific [place] (Auto) 1.020 12/06/23 08:16 Urine Protein (Auto) 30 mg/dL 12/06/23 08:16 Glucose (UA)(Auto) 0 mg/dL 12/06/23 08:16 Urine Ketones (Auto) Negative 12/06/23 08:16 Urine Blood (Auto) 200 Matias/uL 12/06/23 08:16 Urine Nitrite (Auto) Negative 12/06/23 08:16 Urine Bilirubin (Auto) 0 mg/dL 12/06/23 08:16 Urine Urobilinogen (Auto) 0.2 mg/dL 12/06/23 08:16 Leukocyte Esterase (Auto) 500 Samantha/uL 12/06/23 08:16 Date of Service: 11/30/23 EXAMINATION: XR ABDOMEN KUB CLINICAL INDICATION: Left ureteral stent. COMPARISON: Abdomen CT from 01/2024 TECHNIQUE: AP view of the abdomen. FINDINGS: Lung bases are unremarkable. Left ureteral stent appears to be in satisfactory position with proximal loop region of mid left kidney and distal loop of stent in urinary bladder. No radiographic evidence of renal, ureteral or bladder calculi. Multilevel osteophyte formation of the degenerated spine. Again noted is a compression fracture of the T12 vertebral body. * The left ureteral stent is in satisfactory position. * There are no radiographically visible urinary tract calculi. Date of Service: 11/19/23 EXAMINATION: CT ABDOMEN AND PELVIS WITHOUT CONTRAST CLINICAL INFORMATION: Left flank pain, blood in urinalysis COMPARISON: None available. TECHNIQUE: Multidetector volumetric imaging was performed from the superior aspect of the liver through the pubic symphysis. Sagittal and coronal reformatted images were obtained on the technologist's workstation. This CT examination was performed using dose optimization techniques as appropriate, variously including the following: *Automated exposure control *Adjustment of mA and/or kV according to patient size (this includes techniques or standardized protocols for targeted exams where dose is matched to indication/reason for exam; i.e. extremities or head) *Use of iterative reconstruction technique DLP: 717 mGy-cm FINDINGS: Evaluation of solid organs, vascular structures, and bowel wall limited in the absence of intravenous contrast. LUNG BASES: Coronary artery calcifications present. Lung bases otherwise unremarkable. LIVER AND BILIARY TREE: Unremarkable. GALLBLADDER: Unremarkable. PANCREAS: Unremarkable. SPLEEN: Unremarkable. ADRENAL GLANDS: Unremarkable. KIDNEYS AND URETERS: Mild left hydroureteronephrosis to the level of the proximal ureter, where there is a 5 mm obstructing calculus (series 4, image 340). Mild asymmetric left perinephric fat stranding. No other urinary tract calculi identified. Right kidney unremarkable. GASTROINTESTINAL TRACT: Small esophageal hiatal hernia. Normal appendix. VASCULAR: Mild aortoiliac calcific atherosclerosis. Retroaortic left renal vein, a normal anatomic variant. LYMPH NODES: No lymphadenopathy. PERITONEUM: No ascites. BLADDER: Unremarkable. PELVIC VISCERA: Unremarkable. ABDOMINAL AND PELVIC WALL: Ventral lower abdominal wall skin thickening and mild fat stranding. OSSEOUS STRUCTURES: Age-indeterminate compression deformity of the T12 vertebral body with approximately 50% anterior and central height loss and 5 mm osseous retropulsion. Mild multilevel degenerative lower thoracic predominant spondylosis. Mild, grade 1 anterolisthesis of L4 and L5, likely secondary to lower lumbar facet arthropathy. IMPRESSION: 1. Obstructing, 5 mm left proximal ureteral calculus with mild upstream hydroureteronephrosis and likely reactive perinephric stranding. 2. Age-indeterminate compression deformity of the T12 vertebral body with mild osseous retropulsion. Correlate with point tenderness and neurologic signs/symptomatology. Assessment & Plan Assessment & Plan (1) Ureteral calculus, left: Code(s): N20.1 - Calculus of ureter (2) Hydronephrosis: Code(s): N13.30 - Unspecified hydronephrosis Plan Cystoscopy and ureteral stent removal today 24 hr urine Diet management, pamphlet given Reevaluate for renal nephrolithiasis, CT-stone protocol Orders: Orders AMB Cystoscopy 12/06/23 N20.1 - Calculus of ureter AMB Urinalysis Automated 12/06/23 Z13.9 - Encounter for screening, unspecified CT abdomen pelvis wo IV con 12/06/23 N20.1 - Calculus of ureter Patient Instructions: The patient had an opportunity to ask questions regarding treatment plan. All questions were answered. Imaging, Laboratory studies and physical exam results were discussed and reviewed in detail. No major barriers to understanding were identified. The patient expressed understanding and agreement with the above treatment plan. The patient is aware they should contact our office by phone for worsening of their current condition or the appearance of new symptoms. Compliance is encouraged with any medications and followup testing that is ordered. It is a privilege to be allowed the opportunity to participate in the urologic care of your patient. If you have any questions or concerns regarding treatment for the above conditions please do not hesitate to contact me. The office telephone contact is [phone]. This note is constructed in part using voice recognition software. While every effort has been made to ensure accuracy field inspector errors may have been included. Yours sincerely, Jarvis Vora MD Coding Level of Care Code Est Pt Level 3 (02223) Diagnoses Ureteral calculus, left N20.1 Hydronephrosis N13.30 CPT Codes Cystoscopy - CPT: 52229-[id number] with stent removal ([id number])
== END 2023-12-06 09:06 | disposition home or self-care (01) ==
PROVIDERS: PCP Internal Medicine; Visit Provider Urology
DX: Z13.9 Encounter for screening, unspecified (principal); N20.1 Calculus of ureter; Z96.0 Presence of urogenital implants
CPT/HCPCS: 52310

== ENCOUNTER → 2023-12-06 08:04 | Outpatient (BNVA) | payer MEDICARE, OTHER, SELFPAY | PROVIDERS: PCP Internal Medicine; Visit Provider Urology | DX: N20.1 Calculus of ureter (principal); N13.30 Unspecified hydronephrosis | CPT/HCPCS: 52310; 81003 ==

== ENCOUNTER 2024-01-23 08:45 | Outpatient (REF) | payer MEDICARE, OTHER, SELFPAY ==
--- NOTE | ~2024-01-23 | CT_ITS ---
EXAMINATION: CT ABDOMEN AND PELVIS WITHOUT CONTRAST CLINICAL INFORMATION: Kidney stone COMPARISON: 11/19/2023 TECHNIQUE: Multidetector volumetric imaging was performed from the superior aspect of the liver through the pubic symphysis. Sagittal and coronal reformatted images were obtained on the technologist's workstation. This CT examination was performed using dose optimization techniques as appropriate, variously including the following: *Automated exposure control *Adjustment of mA and/or kV according to patient size (this includes techniques or standardized protocols for targeted exams where dose is matched to indication/reason for exam; i.e. extremities or head) *Use of iterative reconstruction technique DLP: 711 mGy-cm FINDINGS: LUNG BASES: Unremarkable. ABDOMINAL AND PELVIC WALL: Left fat-containing inguinal hernia. LIVER AND BILIARY TREE: Unremarkable. GALLBLADDER: Unremarkable. PANCREAS: Unremarkable. SPLEEN: Unremarkable. ADRENAL GLANDS: Unremarkable. KIDNEYS AND URETERS: No hydronephrosis or nephrolithiasis. Interval resolution of previously seen left-sided hydronephrosis. GASTROINTESTINAL TRACT: Unremarkable. Appendix is within normal limits. VASCULAR: Unremarkable. LYMPH NODES/PERITONEUM: No lymphadenopathy. FREE FLUID: None. BLADDER: Unremarkable. PELVIC VISCERA: Scattered aortic and prostatic calcifications, no aneurysmal dilation. OSSEOUS STRUCTURES: Degenerative changes of the spine. Redemonstration of age indeterminate compression deformity of the T12 vertebral body with associated vacuum phenomena of the superior and inferior disc spaces. CT/CT abdomen pelvis wo IV con IMPRESSION: * No hydronephrosis or nephrolithiasis. Interval resolution of previously seen left-sided hydronephrosis. * Redemonstration of age indeterminate compression deformity of the T12 vertebral body with associated vacuum phenomena of the superior and inferior disc spaces.
== END 2024-01-23 08:46 | disposition home or self-care (01) ==
LOC: HO.CT 08:45
PROVIDERS: PCP Internal Medicine; Visit Provider Urology
DX: N20.1 Calculus of ureter (principal)
CPT/HCPCS: 74176

== ENCOUNTER 2024-02-19 08:43 | Outpatient (AMB) | payer MEDICARE, OTHER, SELFPAY ==
--- NOTE | 2024-02-19 08:55 | A.OFFVIS_ITS ---
Intake Visit Reasons: 10w/CT/Litholink Intake Note: Patient presents today for a CT & Lithol[facility] Results: Meds: Vesicare & Tamsulosin Allergies to Antibiotic: Sulfa Blood Thinner: Aspirin Drophammer Operator Required: No Accompanied by: Self / Same As Patient Allergies Sulfa (Sulfonamide Antibiotics) Allergy (Mild, Verified 12/06/23 08:12) Rash HPI Comments Details: 02/19/2024--Kassandra is here for follow-up. I have reviewed 24 hour urine collection. Discussed 24 hour urine results: Total volume 820 mL, Calcium 97 mg; Oxalate 21 mg, Sodium 109, Citrate 223 mg. Instructed on importance of fluid intake, Low oxalate diet, low sodium diet. Diet sheet again given to the patient. Reviewed CT imaging CTAP--hydronephrosis resolved. Kidneys within normal limits no renal calculi noted. Plan discussed increase fluids, add lemon to water. Will continue to monitor, follow-up in 1 year renal ultrasound prior 30 minutes spent in review of records pertaining to this visit and including [id number]-wdvj discussion with the patient and documentation of this visit. Review of chart: 12/06/23--Kassandra is s/p ureteroscopy left ureteroscopy, 5 mm ureteral stone was not visualized, left ureteral stent placed. FU KUB - no radio-opaque stone seen. I have discussed with the patient that she either passed the stone or it may have migrated into a calyce and was not visualized at time of ureteroscopy and that KUB may miss radiolucent stones. Plan to remove stent today. Will get fu imaging. metabolic w/u 11/20/23 Kassandra is a 73-year-old female she was seen in the emergency room on 11/19 23 with left flank pain. She had a CT scan done which noted a 5 mm proximal ureteral stone with mild hydronephrosis. She states that several years ago she had a kidney stone requiring a stent and treatment for the stone and the stent was removed in the office. Past medical history hypertension, CAD, type 2 DM, the patient is on aspirin 81 mg daily which she has not taken in a few days. Currently her pain is manageable she denies nausea. I reviewed CT imaging--CTAP-5 mm left proximal ureteral calculus with mild upstream hydroureteronephrosis and likely reactive perinephric stranding. 02/19/24--Plan: Follow-up in 1 year renal ultrasound prior [facility] Medical History Herniated muscle Lower back pain Bursitis Arthritis Biceps tendonitis Osteopenia Anxiety disorder Hypertension Systolic murmur Mixed hyperlipidemia Hiatal hernia Collagenous colitis Hyperlipemia Type 2 diabetes mellitus Heart attack History of renal stone Surgical History Hx of cystoscopy History of carpal tunnel surgery History of heart artery stent Hx of lithotripsy Family History Father No problems noted. Mother Brain cancer Social History Alcohol intake: current Alcohol intake frequency: 0-2 drinks per day Alcohol type: wine Patient Tobacco Use Status: Never used Tobacco Second Hand Smoke Exposure: No Review of Systems Const All systems reviewed & are unremarkable except as noted in HPI and below Reports no additional complaints Eyes Reports no additional complaints ENT Reports no additional complaints Card Reports no additional complaints Resp Reports no additional complaints GI Reports no additional complaints Reports as per HPI Musc Reports no additional complaints Skin/Breast Reports system reviewed and no additional complaints, except as documented Neuro Reports no additional complaints Psych Reports no additional complaints Endo Reports no additional complaints Roland/Lymph Reports no additional complaints Aller/Immun Reports no additional complaints Results AMB Urinalysis, Automated UA Leukoctes 15 Samantha/uL Last Edit by WILLIAM Enriquez on 02/19/24 09:06 UA Nitrite Negative Last Edit by WILLIAM Enriquez on 02/19/24 09:06 UA Urobilinogen 0.2 mg/dL Last Edit by WILLIAM Enriquez on 02/19/24 09:0 6 UA Protein 15 mg/dL Last Edit by WILLIAM Enriquez on 02/19/24 09:06 UA pH 6.0 Last Edit by WILLIAM Enriquez on 02/19/24 09:06 UA Blood 10 Matias/uL Last Edit by WILLIAM Enriquez on 02/19/24 09:06 UA Specific Quinlan 1.030 Last Edit by WILLIAM Enriquez on 02/19/24 09: 06 UA Ketone Negative Last Edit by WILLIAM Enriquez on 02/19/24 09:06 UA Bilirubin 1 mg/dL Last Edit by WILLIAM Enriquez on 02/19/24 09:06 UA Glucose 0 mg/dL Last Edit by WILLIAM Enriquez on 02/19/24 09:06 Results Reviewed Results Reviewed: Date of Service: 01/23/24 CT ABDOMEN AND PELVIS WITHOUT CONTRAST CLINICAL INFORMATION: Kidney stone COMPARISON: 11/19/2023 TECHNIQUE: Multidetector volumetric imaging was performed from the superior aspect of the liver through the pubic symphysis. Sagittal and coronal reformatted images were obtained on the technologist's workstation. This CT examination was performed using dose optimization techniques as appropriate, variously including the following: *Automated exposure control *Adjustment of mA and/or kV according to patient size (this includes techniques or standardized protocols for targeted exams where dose is matched to indication/reason for exam; i.e. extremities or head) *Use of iterative reconstruction technique DLP: 711 mGy-cm FINDINGS: LUNG BASES: Unremarkable. ABDOMINAL AND PELVIC WALL: Left fat-containing inguinal hernia. LIVER AND BILIARY TREE: Unremarkable. GALLBLADDER: Unremarkable. PANCREAS: Unremarkable. SPLEEN: Unremarkable. ADRENAL GLANDS: Unremarkable. KIDNEYS AND URETERS: No hydronephrosis or nephrolithiasis. Interval resolution of previously seen left-sided hydronephrosis. GASTROINTESTINAL TRACT: Unremarkable. Appendix is within normal limits. VASCULAR: Unremarkable. LYMPH NODES/PERITONEUM: No lymphadenopathy. FREE FLUID: None. BLADDER: Unremarkable. PELVIC VISCERA: Scattered aortic and prostatic calcifications, no aneurysmal dilation. OSSEOUS STRUCTURES: Degenerative changes of the spine. Redemonstration of age indeterminate compression deformity of the T12 vertebral body with associated vacuum phenomena of the superior and inferior disc IMPRESSION: * No hydronephrosis or nephrolithiasis. Interval resolution of previously seen left-sided hydronephrosis. * Redemonstration of age indeterminate compression deformity of the T12 vertebral body with associated vacuum phenomena of the superior and inferior disc spaces. Date of Service: 11/30/23 EXAMINATION: XR ABDOMEN KUB CLINICAL INDICATION: Left ureteral stent. COMPARISON: Abdomen CT from 01/2024 TECHNIQUE: AP view of the abdomen. FINDINGS: Lung bases are unremarkable. Left ureteral stent appears to be in satisfactory position with proximal loop region of mid left kidney and distal loop of stent in urinary bladder. No radiographic evidence of renal, ureteral or bladder calculi. Multilevel osteophyte formation of the degenerated spine. Again noted is a compression fracture of the T12 vertebral body. * The left ureteral stent is in satisfactory position. * There are no radiographically visible urinary tract calculi. Date of Service: 11/19/23 EXAMINATION: CT ABDOMEN AND PELVIS WITHOUT CONTRAST CLINICAL INFORMATION: Left flank pain, blood in urinalysis COMPARISON: None available. TECHNIQUE: Multidetector volumetric imaging was performed from the superior aspect of the liver through the pubic symphysis. Sagittal and coronal reformatted images were obtained on the technologist's workstation. This CT examination was performed using dose optimization techniques as appropriate, variously including the following: *Automated exposure control *Adjustment of mA and/or kV according to patient size (this includes techniques or standardized protocols for targeted exams where dose is matched to indication/reason for exam; i.e. extremities or head) *Use of iterative reconstruction technique DLP: 717 mGy-cm FINDINGS: Evaluation of solid organs, vascular structures, and bowel wall limited in the absence of intravenous contrast. LUNG BASES: Coronary artery calcifications present. Lung bases otherwise unremarkable. LIVER AND BILIARY TREE: Unremarkable. GALLBLADDER: Unremarkable. PANCREAS: Unremarkable. SPLEEN: Unremarkable. ADRENAL GLANDS: Unremarkable. KIDNEYS AND URETERS: Mild left hydroureteronephrosis to the level of the proximal ureter, where there is a 5 mm obstructing calculus (series 4, image 340). Mild asymmetric left perinephric fat stranding. No other urinary tract calculi identified. Right kidney unremarkable. GASTROINTESTINAL TRACT: Small esophageal hiatal hernia. Normal appendix. VASCULAR: Mild aortoiliac calcific atherosclerosis. Retroaortic left renal vein, a normal anatomic variant. LYMPH NODES: No lymphadenopathy. PERITONEUM: No ascites. BLADDER: Unremarkable. PELVIC VISCERA: Unremarkable. ABDOMINAL AND PELVIC WALL: Ventral lower abdominal wall skin thickening and mild fat stranding. OSSEOUS STRUCTURES: Age-indeterminate compression deformity of the T12 vertebral body with approximately 50% anterior and central height loss and 5 mm osseous retropulsion. Mild multilevel degenerative lower thoracic predominant spondylosis. Mild, grade 1 anterolisthesis of L4 and L5, likely secondary to lower lumbar facet arthropathy. IMPRESSION: 1. Obstructing, 5 mm left proximal ureteral calculus with mild upstream hydroureteronephrosis and likely reactive perinephric stranding. 2. Age-indeterminate compression deformity of the T12 vertebral body with mild osseous retropulsion. Correlate with point tenderness and neurologic signs/symptomatology. Assessment & Plan Assessment & Plan (1) Ureteral calculus, left: Code(s): N20.1 - Calculus of ureter Category: Medical (2) Hydronephrosis: Code(s): N13.30 - Unspecified hydronephrosis Category: Medical (3) History of renal stone: Code(s): Z87.442 - Personal history of urinary calculi Category: Medical Plan Follow-up in 1 year renal ultrasound prior Orders: Orders AMB Urinalysis Automated Today Z13.9 - Encounter for screening, unspecified AMB Post Void Residual by ultrasound Today N39.8 - Other specified disorders of urinary system US renal BI 10 Months Z87.442 - Personal history of urinary calculi Patient Instructions: The patient had an opportunity to ask questions regarding treatment plan. The patient expressed understanding and agreement with the above treatment plan. The patient is aware they should contact our office by phone for worsening of their current condition or the appearance of new symptoms. Compliance is encouraged with any medications and followup testing that is ordered. It is a privilege to be allowed the opportunity to participate in the urologic care of your patient. If you have any questions or concerns regarding treatment for the above conditions please do not hesitate to contact me. The office telephone contact is [phone]. This note is constructed in part using voice recognition software. While every effort has been made to ensure accuracy tankman errors may have been included. Yours sincerely, Jarvis Vora MD Coding Level of Care Code Est Pt Level 4 (93257) Diagnoses Ureteral calculus, left N20.1 Hydronephrosis N13.30 History of renal stone Z87.442
== END 2024-02-19 09:23 | disposition home or self-care (01) ==
PROVIDERS: PCP Internal Medicine; Visit Provider Urology
DX: N20.1 Calculus of ureter (principal); N13.30 Unspecified hydronephrosis; Z87.442 Personal history of urinary calculi; Z13.9 Encounter for screening, unspecified
CPT/HCPCS: 99214

== ENCOUNTER → 2024-02-19 08:43 | Outpatient (BNVA) | payer MEDICARE, OTHER, SELFPAY | PROVIDERS: PCP Internal Medicine; Visit Provider Urology | DX: N20.1 Calculus of ureter (principal); N13.30 Unspecified hydronephrosis; Z87.442 Personal history of urinary calculi | CPT/HCPCS: 81003; 99212 ==

== ENCOUNTER 2024-12-23 09:48 | Outpatient (REF) | payer MEDICARE, OTHER, SELFPAY ==
--- NOTE | ~2024-12-23 | US_ITS ---
EXAMINATION: US KIDNEY BILATERAL HISTORY: Z87.442 - Personal history of urinary calculi TECHNIQUE: Real-time grayscale ultrasound imaging of the kidneys was performed and images were reviewed. COMPARISON: Correlation is made with a CT of the abdomen without contrast dated 01/23/2024. FINDINGS: Right kidney: The right kidney measures 10.1 x 3.7 x 5.2 cm. Renal parenchymal echotexture and thickness are normal. There is a 1.4 x 1.2 x 1.5 cm cyst in the interpolar region. There is no hydronephrosis or renal calculi. Left Kidney: The left kidney measures 10.0 x 4.5 x 4.7 cm. Renal parenchymal echotexture and thickness are normal. There are no masses. No calculi are seen. There is minimal prominence of the renal pelvis without hydronephrosis. US/US renal BI IMPRESSION: 1.4 x 1.2 x 1.5 cm right renal cyst. No evidence of nephrolithiasis. Electronically signed by: Joni Vergara MD 12/24/2024 08:13 AM EDT
--- OUTSIDE RECORDS SUMMARY | 2024-12-23 10:43 | XMS_ITS | Continuity of Care Document ---
Author Organization [facility] [address] [place] [address] Phone [phone] Care Team Providers Care Process Design Chemical Engineer Name Role Phone Candido Treviño M.D. Care Team Information Electronic Security Technician [phone] Problems Active Problems Provider Date Type 2 diabetes mellitus Fabien Gonzales M.D. Onset: 08/25/2022 Hyperlipidemia Fabien Gonzales M.D. Onset: 10/25/2021 Osteoporosis Fabien Gonzales M.D. Onset: 1 10/25/2021 Coronary atherosclerosis Fabien Gonzales M.D. Onset: 08/25/2022 Extraction of cataract Fabien Gonzales M.D. O nset: 06/12/2023 Social History Type Date Description Comments Sex Unknown Lives With Spouse ETOH Use Occasionally consumes alcoho l Tobacco Use Start: Unknown Patient has never smoked Smoking Status Reviewed: 03/09/23 Patient has never sm oked Allergies and adverse reactions Active Allergies Criticality Reaction Severity Comments Date Sulfamoxole Unable to assess criticality Hives 05/19/2022 Medications Active Medications SIG Qnty Indications Order ing Provider Date Fxwbifpu77.5mg/0.5ML Solution Auto-Inject 1 injection every week as directed Dx: E11.9 6ml E11.9 Fabien Gonzales M.D. 10/30/2024 BD Uf Mini Pen Needle [id number] Use 1 Pen To Skin Once Daily 100units E11.9 Fabien Gonzales M.D. 11/08/2023 Basaglar Hxhrzpm003Wyxo/ML Solution Pen-Inject Inject 35 Units Every Morning 60ml E11.9 Fabien Gonzales M.D. 10/24/2023 Aspirin Adult Low Czud02sn Tablets DR 1 by mouth every day Fabien Gonzales M.D. 05/19/2022 Budesonide ER9mg Tablets ER 24HR Take 1 Tablet By Mouth Every Morning Candido Treviño M.D. Losartan Tfpswveef033vk Tablets Take 1 Tablet By Mouth Every Day Candido Treviño M.D. Metoprolol Succinate ER25mg Tablets ER 24HR Take 1 Tablet By Mouth Every Day Candido Treviño M.D. Ferrous Izydfme723(65Fe) mg Tablets Take 1 Tablet By Mouth Daily To Be Taken With Vitamin C/Ascorbic Acid Daily. Candido Treviño M.D. Levothyroxine Yddfqg395uum Tablets Take 1 Tablet By Mouth Every Day 6 days per week Gillian Pendleton MD Fluticasone Whdygiiimj38eos/Act Suspension 1 [place] Into Each Nostril Twice A Day as Needed For Nasal & Sinus Congestion Candido Treviño M.D. Loperamide HCL2mg Capsules Take 1 Capsule By Mouth Twice A Day as Needed For Loose Stools. Max 8 Caps/Day Candido Treviño M.D. Citalopram Gcjbjwqyquce53qt Tablets Take 1 Tablet By Mouth Every Day Candido Treviño M.D. Rosuvastatin Vlsoyrd76oy Tablets Take 1 Tablet By Mouth Everyday AT Bedtime Candido Treviño M.D. Ujejqdubz37se Tablets Take 1 Tablet By Mouth Every Day Candido Treviño M.D. Alendronate Caavym06ez Tablets Take 1 Tablet By Mouth Once A Week Candido Treviño M.D. Eqqgxjvdt91wa Tablets Take 1 Tablet By Mouth Once Daily With Food as Needed Mahin Flores DO History Medications Mounjaro7.5mg/0.5ML Solution Pen-Inject 1 injection every week as directed Dx: E11.9 E11.9 Fabien Gonzales M.D. 01/24/2024 - 01/24/2024 Mmrmgffl95za/0.5ML Solution Pen-Inject 1 injection every week as directed Dx: E11.9 6ml E11.9 Fabien Gonzales M.D. 01/24/2024 - 10/30/2024 Sxnurkes9ju/0.5ML Solution Pen-Inject 1 injection every week as directed Dx: E11.9 2ml E11.9 Fabien Gonzales M.D. 01/01/2024 - 01/24/2024 Vital Signs Date Vital Result Comment 12/09/2024 10:21am BP Systolic 130 mmHg BP Diastolic 84 mmHg Heart Rate 84 /min Height 60 inches 5'0 Weight 184.38 lb BMI (Body Mass Index) 36.0 kg/m2 Results Test Acquired Date Facility Test Result H/L [place] Laboratory test finding 12/09/2024 Inhouse Hemoglobin A1c 5.6% Glucose Fingerstick 77 Laboratory test finding 08/26/2024 Inhouse Hemoglobin A1c 5.4% Glucose Fingerstick 69 Laboratory test finding 05/15/2024 Inhouse Hemoglobin A1c 5.1% Glucose Fingerstick 53 Laboratory test finding 01/24/2024 Inhouse Hemoglobin A1c 5.8% Glucose Fingerstick 152 Laboratory test finding 09/20/2023 Inhouse Hemoglobin A1c 7.2% Glucose Fingerstick 119 Laboratory test finding 06/12/2023 Inhouse Hemoglobin A1c 7.4% Glucose Fingerstick 147 Laboratory test finding 03/09/2023 Inhouse Hemoglobin A1c 8.5% Glucose Fingerstick 176 Laboratory test finding 12/07/2022 Inhouse Hemoglobin A1c 9.0% Glucose Fingerstick 144 Laboratory test finding 08/25/2022 Inhouse Glucose Fingerstick 110 Hemoglobin A1c 7.3% Laboratory test finding 05/19/2022 Inhouse Glucose Fingerstick 127 Hemoglobin A1c 7.8 Laboratory test finding 05/02/2022 [facility] TSH 2.23 uIU/mL (0.4-4.2) Medical Devices Description No Information Available Encounters Type Date Location Provider Dx Diagnosis Office Visit 08/26/2024 10:15a Main Office Fabien Gonzales M.D. E11.9 Type 2 diabetes mellitus without complications I25.10 Athscl heart disease of [place] coronary artery w/o ang pctrs E78.5 Hyperlipidemia, unsp ecified E03.9 Hypothyroidism, unsp ecified Assessments Date Code Description Provider 12/09/2024 E11.9 Type 2 diabetes mellitus without complications Fabien Gonzales M.D. 12/09/2024 I25.10 Coronary atherosclerosis Genesis Gonzales M.D. 08/26/2024 E11.9 Type 2 diabetes mellitus without complications Fabien Gonzales M.D. 08/26/2024 I25.10 Coronary atherosclerosis Genesis Gonzales M.D. 08/26/2024 E78.5 Hyperlipidemia Fabien sanchez M.D. 08/26/2024 E03.9 Hypothyroidism Fabien sanchez M.D. Plan of Treatment Future Appointment(s):* 04/30/2025 10:30 am - Fabien Gonzales M.D. at Main Office 12/09/2024 - Fabien Gonzales M.D.* E11.9 Type 2 diabetes mellitus without complications * I25.10 Coronary atherosclerosis Functional Status Description No Information Available Mental Status Description No Information Available Referrals Description No Information Available
--- OUTSIDE RECORDS SUMMARY | 2024-12-23 10:43 | XMS_ITS | Patient Health Record ---
Author Organization [facility] Address [address] [place] [address] [address] [place] [address] Care Team Providers Care Physician General Internal Medicine Name Role Phone ALTA JIMENEZD Primary Care Provider Jasmin Nathan Unavailable [phone] Allergies Allergen (clinical drug ingredient) Drug/Non Drug Allergy documented on EMR Reaction Allergy Type Onset Date Status Substance with sulfonamide structure and antibacterial mechanism of action (substance) SULFA (uncoded) Unknown Allergy Active Reason For Referral No Information Medications Medication SIG (Take, Route, Frequency, Duration) Notes Start Date End Date Status Citalopram Hydrobromide 20 MG 1 tablet Orally Once a day Active Crestor 40MG 1 ORAL daily for [facility] 06/29/2012 Active Pioglitazone HCl 30 MG 1 tablet Orally O nce a day Active Uceris 9 MG 1 tablet in the morn ing Orally Once a day Active Levoxyl 150MCG 1 ORAL daily for [facility] 07/04/2013 Active Zetia 10MG 1 ORAL daily for [facility] 07/04/2013 Active Aspirin EC 81MG 1 ORAL daily for [facility] 06/29/2012 Active Levemir 100 UNIT/ML Subcutaneous 56 unit s in AM Active Lisinopril 2.5 MG 1 tablet Orally Once a day Active metFORMIN HCl 500 MG 1 tablet with meals Orally Twice a day Active Problems Problem Type SNOMED Code ICD Code Onset Dates Problem Status W/U Status Risk Notes Problem Postmenopausal atrophic vaginitis (61722720) Postmenopausal atrophic vaginitis (N95.2) Active confirmed Problem Hypothyroidism (34016294) Unspecified hypothyroidism (244.9) Active confirmed Major Problem Type II diabetes mellitus without complication (642564527) Diabetes mellitus without mention of complication, type II or unspecified type, not stated as uncontrolled (250.00) Active confirmed Major Problem Hyperlipidemia (16156498) Other and unspecified hyperlipidemia (272.4) Active confirmed Major Problem Depressive disorder (39925492) Depressive disorder, not elsewhere classified (311) Active confirmed Major Problem Benign essential hypertension (1921672) Essential hypertension, benign (401.1) Active confirmed Major Problem Menopausal symptom (93439011) Symptomatic menopausal or female climacteric states (627.2) Active confirmed Major Problem Postmenopausal atrophic vaginitis (76886963) Postmenopausal atrophic vaginitis (627.3) Active confirmed Diag Problem Disorder of bone and articular cartilage (disorder) (595877708) Disorder of bone and cartilage, unspecified (733.90) Active confirmed Diag Problem Gynecological examination normal (966363564261169) Routine gynecological examination (V72.31) Active confirmed Major Problem Screening for malignant neoplasm of colon (071712442) Special screening for malignant neoplasms, colon (V76.51) Active confirmed Major Plan Of Treatment Pending Test Test Name Order Date MAMMOGRAM, SCREENING 07/28/2015 THIN PREP,HPV,SOBIA IF HPV+ (>29YR)(SCRN) 08/30/2017 MM Digital Mammo Screening 08/09/2016 Insurance Providers Payer Name Payer Address Payer Phone Subscriber Number Group Number Insured Name Patient Relationship to Insured Coverage Start Date Coverage End Date MEDICARE [address] [place], [place] [id number] [place] GAN Self - patient is the insured [facility] INDEMNITY PLAN [address] [place], [place] [id number] CANDE GAN Spouse - patient is the spouse of the insured Medical (General) History Medical History History ICD Code Postmenopausal atrophic vaginitis N95.2 Disorder of bone, unspecified M89.9 Major depressive disorder, single episod e, unspecified F32.9 Type 2 diabetes mellitus without complic ations E11.9 Other hyperlipidemia E78.4 Essential (primary) hypertension I10 Hypothyroidism, unspecified E03.9 Menopausal and female climacteric states N95.1 Surgical History Surgery Date(Month/Year) Bilateral Tubal Ligation Colonoscopy Endometrial Ablation D & C Polypectomy Hospitalization History Reason Date(Month/Year) 2 Vaginal Deliveries See Surgical Hx
--- OUTSIDE RECORDS SUMMARY | 2024-12-23 10:43 | XMS_ITS | Clinical Summary ---
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 Name Role Phone Unavailable Primary Care Provider Unavailabl e Social History Tobacco Use Types Packs/Day Years Used Date Smoking Tobacco: Never Assessed Comments Unknown Sex and Gender Information Value Date Recorded Sex Assigned at Not on file Legal Sex Female 3:19 PM EST Gender Identity Not on file Sexual Orientation Not on file Plan of Treatment Upcoming Encounters Date Type Department Care Team (Late st Contact Info) Description 01/13/2025 9:30 AM EDT [facility]ointment [facility] [address] [id number] Health Maintenance Due Date Last Done Comments DTaP,Tdap,and Td Vaccines (1 - Tdap) 1971 Pneumococcal Vaccine: 50+ Years (1 of 1 - PCV) 2002 Zoster Vaccines (1 of 2) 2002 Colorectal Cancer Screening: Colonoscopy 09/14/2022 Depression Screening 09/14/2022 Falls Risk Assessment 09/14/2022 Hepatitis C Screening 09/14/2022 Medicare Annual Wellness Visit 09/14/2022 Social Influencers of Health Screening 09/14/2022 COVID-19 Vaccine ( - season) 2024 Influenza Vaccine (#1) 2024 Breast Cancer Screening 01/08/2026 01/09/20 24, 01/02/2023, 12/30/2021, Additional history exists RSV Immunization Patients 60+ Years Old (1 - 1-dose 75+ series) 2027 Osteoporosis Screening (Bone Density Screening) 02/25/2031 02/25/2021, 09/21/2018 HIB Vaccines Aged Out No longer eligi ble based on patient's age to complete this topic HPV Vaccines Aged Out No longer eligi ble based on patient's age to complete this topic Hepatitis A Vaccines Aged Out No long er eligible based on patient's age to complete this topic Hepatitis B Vaccines Aged Out No long er eligible based on patient's age to complete this topic IPV Vaccines Aged Out No longer eligi ble based on patient's age to complete this topic MMR Vaccines Aged Out No longer eligi ble based on patient's age to complete this topic Meningococcal ACWY Vaccine Aged Out N o longer eligible based on patient's age to complete this topic Meningococcal B Vacine Aged Out No lo nger eligible based on patient's age to complete this topic RSV Immunization Patients Under 20 months Aged Out No longer eligible based on patient's age to complete this topic Varicella Vaccines Aged Out No longer eligible based on patient's age to complete this topic Procedures Procedure Name Priority Date/Time Associated Diagnosis Comments [facility] SCREEN[facility] Routine 01/09/2024 1:01 PM EDT Encounter for screening mammogram for malignant neoplasm of breast [facility] DEXA AXIAL SKELETON Routine 02/25/2021 10:30 AM EDT Encounter for screening for osteoporosis from Last 3 Months or Most Recently Relevant to Health Maintenance Results * [facility] (01/09/2024 1:01 PM EDT) Anatomical Region Laterality Modality Mammography 01/09/2024 10:3 2 AM EDT Narrative 01/09/2024 1:01 PM EDT [facility] Diagnostic Imaging Department [address] [place] [address] Patient: ??KASSANDRA MITCHELL ?/Age/Sex: 1950 - 73 - F Unit#: ??[id number] ? Location/Status: ??SPDIMAM/REG CLI ? Mnemonic/Ordering Site: ??DIGSC/SPMAM Ordering Physician: ??JOSELUIS TREVIÑO MD [facility] Screening Digital - 01/09/24 - 1048 Report Status:Signed EXAM: [facility] Screening Digital EXAM DATE AND TIME: 01/09/2024 10:49 AM HISTORY: ??Annual screening COMPARISON: ??Multiple exams dating back to 2016 TECHNIQUE: Bilateral digital breast tomosynthesis was performed in the CC and MLO projections. Computer aided detection with [employer] 3D 3.1 was employed. TISSUE DENSITY: b. There are scattered areas of fibroglandular density. FINDINGS: No suspicious masses, grouped microcalcifications, or areas of architectural distortion are seen. The skin and vascularity are unremarkable. IMPRESSION: Stable mammographic appearance of the breasts. ??No evidence of malignancy is seen. A negative mammogram in the presence of a clinically suspicious palpable abnormality does not preclude the possibility of malignancy or alter the indications for biopsy. BI-RADS: ??Category 1: Negative RECOMMENDATION(S): 1: Routine screening mammogram BILATERAL in 1 year. 3341F, 7025F Dictating Physician: ??JAVON HANKINS MD Electronically Signed by: ??JAVON HANKINS MD Dic Date/Time: ??01/09/24 1252 Sign date/Time: ??01/09/24 1301 Procedure Note Javon Hankins MD - 06/03/2024 [facility] Diagnostic Imaging Department [address] [place] [address] Patient: KASSANDRA MITCHELL /Age/Sex: 1950 73 - F Unit#: [id number] Location/Status: SPDIMAM/REG CLI Mnemonic/Ordering Site: [facility] Ordering Physician: JOSELUIS TREVIÑO MD [facility] Screening Digital - 01/09/24 - 1048 Report Status:Signed EXAM: [facility] Screening Digital EXAM DATE AND TIME: 01/09/2024 10:49 AM HISTORY: Annual screening COMPARISON: Multiple exams dating back to 2016 TECHNIQUE: Bilateral digital breast tomosynthesis was performed in the CCand MLO projections. Computer aided detection with [employer] 3D 3.1was employed. TISSUE DENSITY: b. There are scattered areas of fibroglandular density. FINDINGS: No suspicious masses, grouped microcalcifications, or areas ofarchitectural distortion are seen. The skin and vascularity are unremarkable. IMPRESSION: Stable mammographic appearance of the breasts. No evidence of malignancyis seen. A negative mammogram in the presence of a clinically suspicious palpable abnormality does not preclude the possibility of malignancy or alter the indications for biopsy. BI-RADS: Category 1: Negative RECOMMENDATION(S): 1: Routine screening mammogram BILATERAL in 1 year. 3341F, 7025F Dictating Physician: JAVON HANKINS MD Electronically Signed by: JAVON HANKINS MD Dic Date/Time: 01/09/24 1252 Sign date/Time: 01/09/24 1301 Joseluis Treviño MD IMG BI PROCEDURES Final Result * [facility] (02/25/2021 10:30 AM EDT) Anatomical Region Laterality Modality Mammography 02/25/2021 9:44 AM EDT Narrative 02/25/2021 10:30 AM EDT [facility] Diagnostic Imaging Department [address] [place] [id number] Patient: ??ELVIAKASSANDRA ?/Age/Sex: 1950 - F Unit#: ??[id number] ? Location/Status: ??SPDIMAM/[facility] CLI ? Mnemonic/Ordering Site: ??MAMDEXAAX/SPMAM Ordering Physician: ??JOSELUIS TREVIÑO MD [facility] Dexa Axial Skeleton - 02/25/21 - 1006 HISTORY: ??The patient is a 70-year-old postmenopausal female with clinical concern for metabolic bone disease. FINDINGS: ??Dual energy x-ray absorptiometry of the lumbar spine and femurs is performed. The mean bone mineral density at L1-L4 is 0.921 gm/cm2 which is 78% of that of young normals and 84% of that of age matched controls. This yields a T-score of -2.2 and a Z-score of -1.5 which is diagnostic of osteopenia. The mean bone mineral density of the femurs bilaterally is 0.834 gm/cm2 which is 83% of that of young normals and 91% of that of age matched controls. ??This yields a T-score of -1.4 and a Z-score of -0.7 which is diagnostic of osteopenia.. ??The T-score of the right femoral neck is -2.2 and that of the left femoral neck is -2.4 which is diagnostic of osteopenia. IMPRESSION: 1. Osteopenia. ??There has been an increase of 7.1% in bone mineral density in the lumbar spine since the prior examination of 09/21/2018. ??There has been a decrease of 5.0% in bone mineral density in the right femur and a decrease of 1.0% in bone mineral density in the left femur. 2. FRAX analysis yields a 10-year probability of major osteoporotic fracture of 18.0% and a 10-year probability of hip fracture of 3.5%. Code 89769 Dictating Physician: ??ALEX BURGER MD Electronically Signed by: ??ALEX BURGER MD Dic Date/Time: ??02/25/21 1028 Sign date/Time: ??02/25/21 1030 Procedure Note Alex Burger MD - 10/04/2022 [facility] Diagnostic Imaging Department [address] [place] [address] Patient: KASSANDRA MITCHELL /Age/Sex: 1950 - 70 - F Unit#: [id number] Location/Status: [facility] Ordering Physician: JOSELUIS TREVIÑO MD [facility] Axial Skeleton - 02/25/21 - 1007 HISTORY: The patient is a 70-year-old postmenopausal female withclinical concern for metabolic bone disease. FINDINGS: Dual energy x-ray absorptiometry of the lumbar spine and femursis performed. The mean bone mineral density at L1-L4 is 0.921 gm/cm2 which is78% of that of young normals and 84% of that of age matched controls. Thisyields a T-score of -2.2 and a Z-score of -1.5 which is diagnostic of osteopenia. The mean bone mineral density of the femurs bilaterally is 0.834 gm/gg6agece is 83% of that of young normals and 91% of that of age matched controls.This yields a T-score of -1.4 and a Z-score of -0.7 which is diagnostic of osteopenia.. The T-score of the right femoral neck is -2.2 and that ofthe left femoral neck is -2.4 which is diagnostic of osteopenia. IMPRESSION: 1. Osteopenia. There has been an increase of 7.1% in bone mineral densityin the lumbar spine since the prior examination of 09/21/2018. There has sudheer decrease of 5.0% in bone mineral density in the right femur and a decreaseof 1.0% in bone mineral density in the left femur. 2. FRAX analysis yields a 10-year probability of major osteoporoticfracture of 18.0% and a 10-year probability of hip fracture of 3.5%. Code 97707 Dictating Physician: ALEX BURGER MD Electronically Signed by: ALEX BURGER MD Dic Date/Time: 02/25/21 1028 Sign date/Time: 02/25/21 1030 Joseluis Treviño MD IM BI PROCEDURES Final Result from Last 3 Months or Most Recently Relevant to Health Maintenance Insurance MEDICARE
== END 2024-12-23 09:49 | disposition home or self-care (01) ==
LOC: HO.HMGCX 09:48
PROVIDERS: PCP Internal Medicine; Visit Provider Urology
DX: Z87.442 Personal history of urinary calculi (principal)
CPT/HCPCS: 76775

== ENCOUNTER → 2024-12-23 09:50 | Outpatient (BNV) | payer MEDICARE, OTHER, SELFPAY | PROVIDERS: PCP Internal Medicine; Visit Provider Radiology Diagnostic Radiology | DX: N28.1 Cyst of kidney, acquired (principal) | CPT/HCPCS: 76775 ==

== ENCOUNTER 2025-02-27 16:04 | Outpatient (AMB) | payer MEDICARE, OTHER, SELFPAY ==
--- NOTE | 2025-02-27 13:43 | MHC.OFFVIS ---
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: No Accompanied by: Self / Same As Patient Allergies Sulfa (Sulfonamide Antibiotics) Allergy (Mild, Verified 02/27/25 16:06) Rash Medication List - Last Reconciled 02/27/25 by Jarvis Vora MD aspirin 81 mg PO DAILY budesonide DR-ER 9 mg PO QAM citalopram 20 mg PO DAILY ergocalciferol (vitamin D2) (Vitamin D2) 1,250 units PO DAILY ezetimibe 10 mg PO DAILY ferrous sulfate 325 mg PO DAILY furosemide 20 mg PO DAILY insulin detemir U-100 (Levemir FlexPen) 70 units subcut insulin glargine (Basaglar KwikPen U-100 Insulin) 70 units subcut levothyroxine 125 mcg PO DAILY losartan 100 mg PO DAILY meloxicam 15 mg PO DAILY metoprolol succinate ER 25 mg PO DAILY pen needle, diabetic (BD Ultra-Fine Mini Pen Needle) As directed pioglitazone 30 mg PO DAILY rosuvastatin (Crestor) 40 mg PO DAILY tamsulosin (Flomax) 0.4 mg PO BEDTIME tirzepatide (Mounjaro) 7.5 mg subcut QWEEK HPI Comments Details: 02/27/25--Kassandra presents for telehealth follow-up. I have reviewed recent ultrasound. No recurrent kidney stones. Simple renal cyst. The patient has been asymptomatic. She states she has a lot of water keep hydrated. We will continue to monitor. Follow-up next year I will check renal ultrasound at that time. She is instructed to call our office for any changes in symptoms prn. Results: Renal ultrasound-12/23/2024--1.4 x 1.2 x 1.5 cm right renal cyst. No evidence of nephrolithiasis. 02/19/2024--Kassandra is here for follow-up. I have reviewed 24 hour urine collection. Discussed 24 hour urine results: Total volume 820 mL, Calcium 97 mg; Oxalate 21 mg, Sodium 109, Citrate 223 mg. Instructed on importance of fluid intake, Low oxalate diet, low sodium diet. Diet sheet again given to the patient. Reviewed CT imaging CTAP--hydronephrosis resolved. Kidneys within normal limits no renal calculi noted. Plan discussed increase fluids, add lemon to water. Will continue to monitor, follow-up in 1 year renal ultrasound prior 30 minutes spent in review of records pertaining to this visit and including [id number] discussion with the patient and documentation of this visit. 12/06/23--Kassandra is s/p ureteroscopy left ureteroscopy, 5 mm ureteral stone was not visualized, left ureteral stent placed. FU KUB - no radio-opaque stone seen. I have discussed with the patient that she either passed the stone or it may have migrated into a calyce and was not visualized at time of ureteroscopy and that KUB may miss radiolucent stones. Plan to remove stent today. Will get fu imaging. metabolic w/u 11/20/23 Kassandra is a 73-year-old female she was seen in the emergency room on 11/19 23 with left flank pain. She had a CT scan done which noted a 5 mm proximal ureteral stone with mild hydronephrosis. She states that several years ago she had a kidney stone requiring a stent and treatment for the stone and the stent was removed in the office. Past medical history hypertension, CAD, type 2 DM, the patient is on aspirin 81 mg daily which she has not taken in a few days. Currently her pain is manageable she denies nausea. I reviewed CT imaging--CTAP-5 mm left proximal ureteral calculus with mild upstream hydroureteronephrosis and likely reactive perinephric stranding. [facility] Medical History Herniated muscle Lower back pain Bursitis Arthritis Biceps tendonitis Osteopenia Anxiety disorder Hypertension Systolic murmur Mixed hyperlipidemia Hiatal hernia Collagenous colitis Hyperlipemia Type 2 diabetes mellitus Heart attack History of renal stone Surgical History Hx of cystoscopy History of carpal tunnel surgery History of heart artery stent Hx of lithotripsy Family History Father No problems noted. Mother Brain cancer Social History Alcohol intake: current Alcohol intake frequency: 0-2 drinks per day Alcohol type: wine Patient Tobacco Use Status: Never used Tobacco Second Hand Smoke Exposure: No Review of Systems Const All systems reviewed & are unremarkable except as noted in HPI and below Reports no additional complaints Eyes Reports no additional complaints ENT Reports no additional complaints Card Reports no additional complaints Resp Reports no additional complaints GI Reports no additional complaints Reports as per HPI Musc Reports no additional complaints Skin/Breast Reports system reviewed and no additional complaints, except as documented Neuro Reports no additional complaints Psych Reports no additional complaints Endo Reports no additional complaints Roland/Lymph Reports no additional complaints Aller/Immun Reports no additional complaints Telehealth Telehealth Telehealth Platform: [employer] Location of provider rendering services: practice address Location of patient: address on file Patient Identification confirmed using: Name, : Yes Telehealth method: voice only Patient verbally consented to treatment: Yes Patient verbally consented to billing insurance company: Yes Patient informed of any privacy concerns related to visit: Yes Minutes spent on Phone/Video with Pt.: 12 Results Reviewed Results Reviewed: Date of Service: 12/23/24 EXAMINATION: US KIDNEY BILATERAL HISTORY: Z87.442 - Personal history of urinary calculi TECHNIQUE: Real-time grayscale ultrasound imaging of the kidneys was performed and images were reviewed. COMPARISON: Correlation is made with a CT of the abdomen without contrast dated 01/23/2024. FINDINGS: Right kidney: The right kidney measures 10.1 x 3.7 x 5.2 cm. Renal parenchymal echotexture and thickness are normal. There is a 1.4 x 1.2 x 1.5 cm cyst in the interpolar region. There is no hydronephrosis or renal calculi. Left Kidney: The left kidney measures 10.0 x 4.5 x 4.7 cm. Renal parenchymal echotexture and thickness are normal. There are no masses. No calculi are seen. There is minimal prominence of the renal pelvis without hydronephrosis. IMPRESSION: 1.4 x 1.2 x 1.5 cm right renal cyst. No evidence of nephrolithiasis. Date of Service: 01/23/24 CT ABDOMEN AND PELVIS WITHOUT CONTRAST CLINICAL INFORMATION: Kidney stone COMPARISON: 11/19/2023 TECHNIQUE: Multidetector volumetric imaging was performed from the superior aspect of the liver through the pubic symphysis. Sagittal and coronal reformatted images were obtained on the technologist's workstation. This CT examination was performed using dose optimization techniques as appropriate, variously including the following: *Automated exposure control *Adjustment of mA and/or kV according to patient size (this includes techniques or standardized protocols for targeted exams where dose is matched to indication/reason for exam; i.e. extremities or head) *Use of iterative reconstruction technique DLP: 711 mGy-cm FINDINGS: LUNG BASES: Unremarkable. ABDOMINAL AND PELVIC WALL: Left fat-containing inguinal hernia. LIVER AND BILIARY TREE: Unremarkable. GALLBLADDER: Unremarkable. PANCREAS: Unremarkable. SPLEEN: Unremarkable. ADRENAL GLANDS: Unremarkable. KIDNEYS AND URETERS: No hydronephrosis or nephrolithiasis. Interval resolution of previously seen left-sided hydronephrosis. GASTROINTESTINAL TRACT: Unremarkable. Appendix is within normal limits. VASCULAR: Unremarkable. LYMPH NODES/PERITONEUM: No lymphadenopathy. FREE FLUID: None. BLADDER: Unremarkable. PELVIC VISCERA: Scattered aortic and prostatic calcifications, no aneurysmal dilation. OSSEOUS STRUCTURES: Degenerative changes of the spine. Redemonstration of age indeterminate compression deformity of the T12 vertebral body with associated vacuum phenomena of the superior and inferior disc IMPRESSION: * No hydronephrosis or nephrolithiasis. Interval resolution of previously seen left-sided hydronephrosis. * Redemonstration of age indeterminate compression deformity of the T12 vertebral body with associated vacuum phenomena of the superior and inferior disc spaces. Date of Service: 11/30/23 EXAMINATION: XR ABDOMEN KUB CLINICAL INDICATION: Left ureteral stent. COMPARISON: Abdomen CT from 01/2024 TECHNIQUE: AP view of the abdomen. FINDINGS: Lung bases are unremarkable. Left ureteral stent appears to be in satisfactory position with proximal loop region of mid left kidney and distal loop of stent in urinary bladder. No radiographic evidence of renal, ureteral or bladder calculi. Multilevel osteophyte formation of the degenerated spine. Again noted is a compression fracture of the T12 vertebral body. * The left ureteral stent is in satisfactory position. * There are no radiographically visible urinary tract calculi. Date of Service: 11/19/23 EXAMINATION: CT ABDOMEN AND PELVIS WITHOUT CONTRAST CLINICAL INFORMATION: Left flank pain, blood in urinalysis COMPARISON: None available. TECHNIQUE: Multidetector volumetric imaging was performed from the superior aspect of the liver through the pubic symphysis. Sagittal and coronal reformatted images were obtained on the technologist's workstation. This CT examination was performed using dose optimization techniques as appropriate, variously including the following: *Automated exposure control *Adjustment of mA and/or kV according to patient size (this includes techniques or standardized protocols for targeted exams where dose is matched to indication/reason for exam; i.e. extremities or head) *Use of iterative reconstruction technique DLP: 717 mGy-cm FINDINGS: Evaluation of solid organs, vascular structures, and bowel wall limited in the absence of intravenous contrast. LUNG BASES: Coronary artery calcifications present. Lung bases otherwise unremarkable. LIVER AND BILIARY TREE: Unremarkable. GALLBLADDER: Unremarkable. PANCREAS: Unremarkable. SPLEEN: Unremarkable. ADRENAL GLANDS: Unremarkable. KIDNEYS AND URETERS: Mild left hydroureteronephrosis to the level of the proximal ureter, where there is a 5 mm obstructing calculus (series 4, image 340). Mild asymmetric left perinephric fat stranding. No other urinary tract calculi identified. Right kidney unremarkable. GASTROINTESTINAL TRACT: Small esophageal hiatal hernia. Normal appendix. VASCULAR: Mild aortoiliac calcific atherosclerosis. Retroaortic left renal vein, a normal anatomic variant. LYMPH NODES: No lymphadenopathy. PERITONEUM: No ascites. BLADDER: Unremarkable. PELVIC VISCERA: Unremarkable. ABDOMINAL AND PELVIC WALL: Ventral lower abdominal wall skin thickening and mild fat stranding. OSSEOUS STRUCTURES: Age-indeterminate compression deformity of the T12 vertebral body with approximately 50% anterior and central height loss and 5 mm osseous retropulsion. Mild multilevel degenerative lower thoracic predominant spondylosis. Mild, grade 1 anterolisthesis of L4 and L5, likely secondary to lower lumbar facet arthropathy. IMPRESSION: 1. Obstructing, 5 mm left proximal ureteral calculus with mild upstream hydroureteronephrosis and likely reactive perinephric stranding. 2. Age-indeterminate compression deformity of the T12 vertebral body with mild osseous retropulsion. Correlate with point tenderness and neurologic signs/symptomatology. Assessment & Plan Assessment & Plan (1) History of renal stone: Code(s): Z87.442 - Personal history of urinary calculi Category: Medical (2) Renal cyst: Code(s): N28.1 - Cyst of kidney, acquired Category: Medical Plan We will continue to monitor, renal ultrasound in 1 year. Orders: Orders US renal BI 10 Months N28.1 - Cyst of kidney, acquired, Z87.442 - Personal history of urinary calculi Patient Instructions: The patient had an opportunity to ask questions regarding treatment plan. The patient expressed understanding and agreement with the above treatment plan. The patient is aware they should contact our office by phone for worsening of their current condition or the appearance of new symptoms. Compliance is encouraged with any medications and followup testing that is ordered. It is a privilege to be allowed the opportunity to participate in the urologic care of your patient. If you have any questions or concerns regarding treatment for the above conditions please do not hesitate to contact me. The office telephone contact is [phone]. This note is constructed in part using voice recognition software. While every effort has been made to ensure accuracy research and development director errors may have been included. Yours sincerely, Jarvis Vora MD Coding Level of Care Code Tele Est Pt Level 3 (94922) Diagnoses History of renal stone Z87.442 Renal cyst N28.1
--- OUTSIDE RECORDS SUMMARY | 2025-02-27 16:09 | XMS_ITS | Patient Health Record ---
Author Organization [employer] [facility] Address [address] [place] [address] [address] [place] [address] Care Team Providers Care Supervisor Hardboard Name Role Phone ALTA JIMENEZD Primary Care Provider Jasmin Nathan Unavailable [phone] Allergies Allergen (clinical drug ingredient) Drug/Non Drug [...] Active Crestor 40MG 1 ORAL daily for [facility] 06/29/2012 Active Pioglitazone HCl 30 MG 1 tablet Orally O nce a day Active Uceris 9 MG 1 tablet in the morn ing Orally Once a day Active Levoxyl 150MCG 1 ORAL daily for [facility] 07/04/2013 Active Zetia 10MG 1 ORAL daily for [facility] 07/04/2013 Active Aspirin EC 81MG 1 ORAL daily for [facility] 06/29/2012 Active Levemir 100 UNIT/ML Subcutaneous 56 unit s in AM Active Lisinopril 2.5 MG 1 tablet Orally Once a day Active metFORMIN HCl 500 MG 1 tablet with meals Orally Twice a day Active Problems Problem Type SNOMED Code ICD Code Onset Dates Problem Status W/U Status Risk Notes Problem Postmenopausal atrophic vaginitis (49225426) Postmenopausal atrophic vaginitis (N95.2) Active confirmed Problem Hypothyroidism (41811086) Unspecified hypothyroidism (244.9) Active confirmed Major Problem Type II diabetes mellitus without complication (995179228) Diabetes mellitus without mention of complication, type II or unspecified type, not stated as uncontrolled (250.00) Active confirmed Major Problem Hyperlipidemia (67767239) Other and unspecified hyperlipidemia (272.4) Active confirmed Major Problem Depressive disorder (87777352) Depressive disorder, not elsewhere classified (311) Active confirmed Major Problem Benign essential hypertension (9791431) Essential hypertension, benign (401.1) Active confirmed Major Problem Menopausal symptom (04194812) Symptomatic menopausal or female climacteric states (627.2) Active confirmed Major Problem Postmenopausal atrophic vaginitis (85283732) Postmenopausal atrophic vaginitis (627.3) Active confirmed Diag Problem 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 [employer]AN [address] [place], [place] [id number] [phone] [id number] CANDE GAN Spouse - patient is [...]
--- OUTSIDE RECORDS SUMMARY | 2025-02-27 16:09 | XMS_ITS | Clinical Summary ---
Author Organization [facility] Address [address] [place] [address] Phone Care Team Providers Care Manager Strategy & Account Name Role Phone Joseluis Treviño MD Primary Care Provider [phone] Encounters Date Type Department Care Team Description 01/13/2025 9:18 AM EDT - 01/13/2025 11:59 PM EDT [facility] [address] [address] Encounter for screening mammogram for breast cancer Discharge Disposition: Home or Self Care from Last 3 Months Social History Tobacco Use Types Packs/Day Years Used Date Smoking Tobacco: Never Assessed Comments No Sex and Gender Information Value Date Recorded Sex Assigned at Not on file Legal Sex Female 3:19 PM EST Gender Identity Not on file Sexual Orientation Not on file Obstetrics History Para Term AB IAB SAB Ectopic Multiple Livin g Live Births 2 Last Filed Vital Signs Vital Sign Reading Time Taken Comments Blood Pressure - - Pulse - - Temperature - - Respiratory Rate - - Oxygen Saturation - - Inhaled Oxygen Concentration - - Weight 82.6 kg (182 lb) 01/13/2025 9:32 AM EDT Height 152.4 cm (5') 01/13/2025 9:32 AM EDT Body Mass Index 35.54 01/13/2025 9:32 AM EDT Plan of Treatment Health Maintenance Due Date Last Done Comments Diabetes: Annual GFR (Glomerular Filtration Rate) 1950 Diabetes: Annual Foot Exam 1962 Diabetes: Annual Retina Eye Exam 1962 DTaP,Tdap,and Td Vaccines (2 - Td or Tdap) 10/16/2021 10/16/2011 Cholesterol Screening (Lipid Panel) 09/14/2022 Colorectal Cancer Screening: Colonoscopy 09/14/2022 Depression Screening 09/14/2022 Falls Risk Assessment 09/14/2022 Hepatitis C Screening 09/14/2022 Medicare Annual Wellness Visit 09/14/2022 Social Influencers of Health Screening 09/14/2022 COVID-19 Vaccine ( season) 2024 07/04/2022, 03/09/2022, 08/17/2021, Additional history exists Diabetes: Annual Urine Albumin-Creatinine Ratio (uACR) 01/13/2025 Diabetes: Blood Sugar Control Test (HGBA1C) 01/13/2025 Hypertension/CHF/CAD Annual BMP Blood Test 01/13/2025 Influenza Vaccine (Season Ended) 2025 07/11/2023, 07/04/2022, 07/19/2021, Additional history exists Breast Cancer Screening 01/13/2027 01/14/20, 01/09/2024, 01/02/2023, Additional history exists Osteoporosis Screening (Bone Density Screening) 02/25/2031 02/25/2021, 09/21/2018 Zoster Vaccines Completed 10/30/2018, 04/2018, 09/09/2013 Pneumococcal Vaccine: 50+ Years Completed 11/14/2018, 11/08/2017 RSV Immunization Adult Patients Completed 07/30/2024 HIB Vaccines Aged Out No longer eligi [...] age to complete this topic Meningococcal B Vaccine Aged Out No l onger eligible based on patient's age to complete this topic RSV Immunization Patients Under 20 months Aged Out No longer eligible based on patient's age to complete this topic Varicella Vaccines Aged Out No longer eligible based on patient's age to complete this topic Procedures Procedure Name Priority Date/Time Associated Diagnosis Comments MG MAMMO DIGITAL SCREENING W KOBY BILAT Routine 01/13/2025 9:37 AM EDT Encounter for screening mammogram for breast cancer EULALIO DEXA AXIAL SKELETON Routine 02/25/2021 10:30 AM EDT Encounter for screening for osteoporosis from Last 3 Months or Most Recently Relevant to Health Maintenance Results * MG Mammo Digital Screening w Koby bilat (01/13/2025 9:37 AM EDT) Anatomical Region Laterality Modality Breast Bilateral Mammography 01/15/2025 11:4 0 AM EDT Impressions 01/15/2025 11:57 AM EDT No evidence of breast malignancy. BI-RADS CATEGORY: 1 - NEGATIVE RECOMMENDATION: Screening bilateral mammogram is recommended in 1 year. Mammo Location: [facility], [address] [place] [address], [address], . -------- FINAL REPORT -------- Dictated By: Myra Farias Dictated Date: 01/15/2025 11:40 ET Assigned Physician: Myra Farias Reviewed and Electronically Signed By: Myra Farias Signed Date: 01/15/2025 11:57 ET Workstation ID: [id number] Transcribed By: Self Edit Transcribed Date: 01/15/2025 11:40 ET Narrative 01/15/2025 11:57 AM EDT CLINICAL: 74 years old, Female, routine annual exam. COMPARISON: 01/09/2024, 01/02/2023, 12/30/2021, 12/28/2020 and 09/24/2019 ?? TECHNIQUE: Bilateral MLO and CC views were obtained digitally with 3-D mammogram (digital breast tomosynthesis). Computer-aided detection was utilized in evaluation of this exam (CAD). FINDINGS: There is no evidence of suspicious mass or architectural distortion. ??No worrisome calcifications are evident. ??There has been no significant change from prior exam(s). ?? BREAST DENSITY: A - The breasts are almost entirely fatty. Procedure Note Myra Farias MD - 01/15/2025 CLINICAL: 74 years old, Female, routine annual exam. COMPARISON: 01/09/2024, 01/02/2023, 12/30/2021, 12/28/2020 and 09/24/2019 TECHNIQUE: Bilateral MLO and CC views were obtained digitally with 3-Dmammogram (digital breast tomosynthesis). Computer-aided detection wasutilized in evaluation of this exam (CAD). FINDINGS: There is no evidence of suspicious mass or architectural distortion. Noworrisome calcifications are evident. There has been no significantchange from prior exam(s). BREAST DENSITY: A - The breasts are almost entirely fatty. IMPRESSION: No evidence of breast malignancy. BI-RADS CATEGORY: 1 - NEGATIVE RECOMMENDATION: Screening bilateral mammogram is recommended in 1 year. Mammo Location: [facility], [address] [place] [address], [id number], . -------- FINAL REPORT -------- Dictated By: Myra Farias Dictated Date: 01/15/2025 11:40 ET Assigned Physician: Myra Farias Reviewed and Electronically Signed By: Myra Fairas Signed Date: 01/15/2025 11:57 ET Workstation ID: [id number] Transcribed By: Self Edit Transcribed Date: 01/15/2025 11:40 ET us Self Referral Sppl IMG BI PROCEDURES Final Resul t * EULALIO DEXA AXIAL SKELETON (02/25/2021 10:30 AM EDT) Anatomical Region Laterality Modality Mammography 02/25/2021 9:44 AM EDT Narrative 02/25/2021 10:30 AM EDT [facility] Diagnostic Imaging Department [address] [place] [id number] Patient: ??KSASANDRA MITCHELL ?/Age/Sex: 1950 - 70 - F Unit#: ??[id number] ? Location/Status: ??SPDIMAM/REG CLI ? Mnemonic/Ordering Site: ??MAMDEXAAX/SPMAM Ordering Physician: ??JOSELUIS TREVIÑO MD [facility] Dexa Axial Skeleton - 02/25/21 - 1007 HISTORY: ??The patient is a 70-year-old postmenopausal [...] probability of hip fracture of 3.5%. Code 93254 Dictating Physician: ??ALEX BURGER MD Electronically Signed by: ??ALEX BURGER MD Dic Date/Time: ??02/25/21 1028 Sign date/Time: ??02/25/21 1030 Procedure Note Alex Burger MD - 10/04/2022 [facility] Diagnostic Imaging Department [address] [place] [address] Patient: KASSANDRA MITCHELL./Age/Sex: 1950 - F Unit#: [id number] Location/Status: [facility] Mnemonic/Ordering Site: [facility] Ordering Physician: JOSELUIS TREVIÑO MD [facility] Dexa Axial Skeleton - 02/25/21 - 1007 [...] density of the femurs bilaterally is 0.834 gm/on9yainj is 83% of that of young normals [...] probability of hip fracture of 3.5%. Code 31602 Dictating Physician: ALEX BURGER MD Electronically Signed by: ALEX BURGER MD Dic Date/Time: 02/25/21 1028 Sign date/Time: 02/25/21 1030 Joseluis Treviño MD IMG BI PROCEDURES Final Result from Last 3 Months or Most Recently Relevant to Health Maintenance Insurance MEDICARE [facility] Care Teams Manager Strategy & Account Relationship Specialty Start Date End Date Joseluis Treviño MD [address] [place] [id number] PCP - General Internal Medicine 01/13/25
--- OUTSIDE RECORDS SUMMARY | 2025-02-27 16:09 | XMS_ITS | Continuity of Care Document ---
Author Organization [facility] [address] [place] [address] Phone [phone] Care Team Providers Care Spreader Box Operator Name Role Phone Candido Treviño M.D. Care Team Information Leakage Tester [phone] Problems Active Problems Provider Date Type 2 [...] SIG Qnty Indications Order ing Provider Date Jonjbtkl36.5mg/0.5ML Solution Auto-Inject 1 injection every week as directed Dx: E11.9 6ml E11.Geovanny Gonzales M.D. 10/30/2024 BD Uf Mini Pen Needle [id number] Use 1 Pen To Skin Once Daily 100units E11.9 Fabien Gonzales M.D. 11/08/2023 Basaglar Efkcdgu532Ntlx/ML Solution Pen-Inject Inject 35 Units Every Morning 60ml E11.9 Fabien Gonzales M.D. 10/24/2023 Aspirin Adult Low Jmyh10tf Tablets DR 1 by mouth every day Fabien Gonzales M.D. 05/19/2022 Gkxjeggmd78uw Tablets Take 1 Tablet By Mouth Once Daily With Food as Needed Mahin Flores DO Alendronate Slcdpk52qp Tablets Take 1 Tablet By Mouth Once A Week Candido Treviño M.D. Qymtjqprw82ve Tablets Take 1 Tablet By Mouth Every Day Candido Treviño M.D. Rosuvastatin Bvhchvx87jz Tablets Take 1 Tablet By Mouth Everyday AT Bedtime Candido Treviño M.D. Citalopram Supkmjukkdzd97ac Tablets Take 1 Tablet By Mouth Every Day Candido Treviño M.D. Budesonide ER9mg Tablets ER 24HR Take 1 Tablet By Mouth Every Morning Candido Treviño M.D. Loperamide HCL2mg Capsules Take 1 Capsule By Mouth Twice A Day as Needed For Loose Stools. Max 8 Caps/Day Candido Treviño M.D. Fluticasone Csxyryifxp25xmo/Act Suspension 1 [place] Into Each Nostril Twice A Day as Needed For Nasal & Sinus Congestion Candido Treviño M.D. Levothyroxine Johswz189isy Tablets Take 1 Tablet By Mouth Every Day 6 days per week Gillian Pendleton MD Ferrous Yswyypq706(65Fe) mg Tablets Take 1 Tablet By Mouth Daily To Be Taken With Vitamin C/Ascorbic Acid Daily. Candido Treviño M.D. Metoprolol Succinate ER25mg Tablets ER 24HR Take 1 Tablet By Mouth Every Day Candido Treviño M.D. Losartan Knpmddipb037vc Tablets Take 1 Tablet By Mouth Every Day Candido Treviño M.D. Vital Signs Date Vital Result Comment 12/09/2024 10:21am BP Systolic 130 mmHg BP Diastolic 84 mmHg Heart Rate 84 /min Height 60 inches 5'0 Weight 184.38 lb BMI (Body Mass Index) 36.0 kg/m2 Results Test Acquired Date Facility Test Result H/L Range N ote Glucose Fingerstick 12/09/2024 Inhouse Glucose Fingerstick 77 Hemoglobin A1c 12/09/2024 Inhouse Hemoglobin A1c 5.6% Hemoglobin A1c 08/26/2024 Inhouse Hemoglobin A1c 5.4% Glucose Fingerstick 08/26/2024 Inhouse Glucose Fingerstick 69 Hemoglobin A1c 05/15/2024 Inhouse Hemoglobin A1c 5.1% Glucose Fingerstick 05/15/2024 Inhouse Glucose Fingerstick 53 Hemoglobin A1c 01/24/2024 Inhouse Hemoglobin A1c 5.8% Glucose Fingerstick 01/24/2024 Inhouse Glucose Fingerstick 152 Hemoglobin A1c 09/20/2023 Inhouse Hemoglobin A1c 7.2% Glucose Fingerstick 09/20/2023 Inhouse Glucose Fingerstick 119 Hemoglobin A1c 06/12/2023 Inhouse Hemoglobin A1c 7.4% Glucose Fingerstick 06/12/2023 Inhouse Glucose Fingerstick 147 Hemoglobin A1c 03/09/2023 Inhouse Hemoglobin A1c 8.5% Glucose Fingerstick 03/09/2023 Inhouse Glucose Fingerstick 176 Hemoglobin A1c 12/07/2022 Inhouse Hemoglobin A1c 9.0% Glucose Fingerstick 12/07/2022 Inhouse Glucose Fingerstick 144 Glucose Fingerstick 08/25/2022 Inhouse Glucose Fingerstick 110 Hemoglobin A1c 08/25/2022 Inhouse Hemoglobin A1c 7.3% Glucose Fingerstick 05/19/2022 Inhouse Glucose Fingerstick 127 Hemoglobin A1c 05/19/2022 Inhouse Hemoglobin A1c 7.8 TSH 05/02/2022 [facility] TSH 2.23 uIU/mL (0.4-4.2) Medical Devices Description No Information Available Encounters Type Date Location Provider Dx Diagnosis Office Visit 12/09/2024 10:15a Main Office Fabien Gonzales M.D. E11.9 Type 2 diabetes mellitus without complications I25.10 [facility] heart disease of [place] coronary artery w/o ang pctrs Assessments Date Code Description Provider 12/09/2024 E11.9 Type 2 diabetes mellitus without complications Fabien Gonzales M.D. 12/09/2024 I25.10 Coronary atherosclerosis Genesis Gonzales M.D. Plan of Treatment Future Appointment(s):* 04/30/2025 10:30 am - Fabien Gonzales M.D. at Main Office 12/09/2024 - Fabien Gonzales M.D.* E11.9 Type 2 diabetes mellitus without complications * I25.10 Coronary atherosclerosis Functional Status Description No Information Available Mental Status Description No Information Available Referrals Description No Information Available
== END 2025-02-27 16:42 | disposition home or self-care (01) ==
LOC: HO.HUSH 16:04
PROVIDERS: PCP Internal Medicine; Visit Provider Urology
DX: N28.1 Cyst of kidney, acquired (principal); Z87.442 Personal history of urinary calculi
CPT/HCPCS: 99213

== ENCOUNTER → 2025-02-27 16:04 | Outpatient (BNVA) | payer MEDICARE, OTHER, SELFPAY | PROVIDERS: PCP Internal Medicine; Visit Provider Urology | DX: Z13.89 Encounter for screening for other disorder (principal) ==